=== PATIENT | male | born 1955 | race Caucasian/White ===

== ENCOUNTER 2021-07-28 11:36 | Inpatient (IN) ==
[2021-07-28 13:56] LABS: Basophils % 0.6 %; Eosinophils # 0.2 K/mcL (0.0-0.6); Eosinophils % 2.6 %; Hematocrit 43.9 % (37.5-50.1); Immature Granulocytes % 0.3 % (0-4); Lymphocytes # 1.5 K/mcL (0.6-4.6); Lymphocytes % 21.6 %; Mean Corpuscular HGB Conc 34.2 g/dL (31.6-35.5); Mean Corpuscular Hemoglobin 30.4 pg (28.0-33.3); Mean Platelet Volume 9.8 fL (9.4-12.4); Monocytes # 0.8 K/mcL (0.0-1.3); Monocytes % 10.9 %; Neutrophils # 4.5 K/mcL (1.6-8.9); Platelet Count 259 K/mcL (140-400); Red Blood Count 4.93 M/mcL (4.19-5.50); Red Cell Distribution Width 13.7 % (11.5-14.5)
[2021-07-28] MEDS ORDERED: Furosemide 40 MG/4 ML VIAL IVP ONE (13:58)
[2021-07-28] MEDS ORDERED: Nitroglycerin 0.4 MG TAB.SUBL SL STA (13:58)
[2021-07-28 14:17] LABS: BUN/Creatinine Ratio 31 (6-26); Blood Urea Nitrogen 27 mg/dL (8-23); Calcium 9.9 mg/dL (8.6-10.3); Carbon Dioxide 25 mEq/L (23-29); Chloride 96 mEq/L (98-107); Glucose 325 mg/dL (70-105); Osmolality,Calculated 294 (280-300); Potassium 4.3 mEq/L (3.5-5.1); Sodium 133 mEq/L (136-145); Troponin I 0.03 ng/mL (< 0.04); eGFR For African Americans > 60 (> 60); eGFR For Non-African Americans > 60 (> 60)
[2021-07-28] MEDS ORDERED: Naloxone 0.4 MG/ML INJ IVP PRN (15:59)
[2021-07-28] MEDS ORDERED: Acetaminophen 325 MG TABLET PO PRN (15:59)
[2021-07-28] MEDS ORDERED: Ondansetron 4 MG/2 ML VIAL IVP PRN (15:59)
[2021-07-28] MEDS ORDERED: Perflutren Lipid Microsphere 1.3 ML in 0.9 % Sodium Chloride 8.7 ML IVP PRN (16:01)
[2021-07-28] MEDS ORDERED: Dextrose 4 GM Chewable Tablets PO PRN ×2 (16:07)
[2021-07-28] MEDS ORDERED: D5% in Water 1,000 ML IVC PRN (16:07)
[2021-07-28] MEDS ORDERED: *HR* Dextrose 50 % in Water (Syg) 50 ML SYRINGE IVP PRN (16:07)
[2021-07-28] MEDS: Insulin LISPRO 300 UNITS/3 ML VIAL SUBQ SCH (17:51)
[2021-07-28] MEDS: *HR* Heparin 5,000 UNIT/ML VIAL SQ SCH (17:52)
[2021-07-29 00:57] LABS: Basophils # 0.1 K/mcL (0.0-0.2); Basophils % 0.9 %; Eosinophils # 0.3 K/mcL (0.0-0.6); Hematocrit 40.1 % (37.5-50.1); Immature Granulocytes % 0.3 % (0-4); Lymphocytes # 1.8 K/mcL (0.6-4.6); Lymphocytes % 27.5 %; Mean Corpuscular HGB Conc 33.4 g/dL (31.6-35.5); Mean Corpuscular Hemoglobin 29.7 pg (28.0-33.3); Mean Corpuscular Volume 88.9 fL (83.0-100.0); Mean Platelet Volume 9.6 fL (9.4-12.4); Monocytes # 0.9 K/mcL (0.0-1.3); Monocytes % 13.2 %; Neutrophils # 3.6 K/mcL (1.6-8.9); Platelet Count 234 K/mcL (140-400); Red Blood Count 4.51 M/mcL (4.19-5.50); Red Cell Distribution Width 13.5 % (11.5-14.5); Segmented Neutrophils % 54.1 %; White Blood Count 6.7 K/mcL (4.3-11.1)
[2021-07-29 00:59] LABS: Hemoglobin 13.4 g/dL (12.9-16.9)
[2021-07-29 01:13] LABS: Alanine Aminotransferase 12 Units/L (7-52); Albumin 3.7 g/dL (3.5-5.7); Albumin/Globulin Ratio 1.5 (1.1-2.2); Alkaline Phosphatase 75 Units/L (34-104); Aspartate Amino Transferase 11 Units/L (13-39); BUN/Creatinine Ratio 32 (6-26); Bilirubin,Total 0.5 mg/dL (0.3-1.0); Blood Urea Nitrogen 25 mg/dL (8-23); Calcium 9.3 mg/dL (8.6-10.3); Carbon Dioxide 26 mEq/L (23-29); Chloride 100 mEq/L (98-107); Chol/HDL Ratio 6.2 (0-4.9); Cholesterol 206 mg/dL (< 200); Globulin 2.4 g/dL (2.4-3.5); Glucose 272 mg/dL (70-105); HDL Cholesterol 33 mg/dL (40-59); LDL Cholesterol,Calculated 151 mg/dL (< 100); Magnesium 2.1 mg/dL (1.6-2.6); Osmolality,Calculated 296 (280-300); Phosphorous 3.9 mg/dL (2.7-4.5); Potassium 3.7 mEq/L (3.5-5.1); Sodium 136 mEq/L (136-145); Total Protein 6.1 g/dL (6.4-8.9); Triglycerides 110 mg/dL (< 150); eGFR For African Americans > 60 (> 60); eGFR For Non-African Americans > 60 (> 60)
[2021-07-29 01:14] LABS: Troponin I 0.03 ng/mL (< 0.04)
[2021-07-29 01:28] LABS: Thyroid Stimulating Hormone 3.216 mcIU/mL (0.340-5.600)
[2021-07-29] MEDS: *HR* Heparin 5,000 UNIT/ML VIAL SQ SCH ×2 (06:05→16:40)
[2021-07-29] MEDS: Aspirin 81 MG TAB.CHEW PO SCH (10:01)
[2021-07-29] MEDS: Insulin LISPRO 300 UNITS/3 ML VIAL SUBQ SCH ×3 (10:02→16:37)
[2021-07-29] MEDS: Furosemide 40 MG/4 ML VIAL IVP SCH (10:02)
[2021-07-29] MEDS: Spironolactone 12.5 MG TABLET PO SCH (16:40)
[2021-07-29] MEDS: carvediloL 6.25 MG TABLET PO SCH (16:40)
[2021-07-30] MEDS: *HR* Heparin 5,000 UNIT/ML VIAL SQ SCH ×2 (05:13→17:27)
[2021-07-30 08:23] LABS: Basophils % 0.6 %; Eosinophils # 0.3 K/mcL (0.0-0.6); Eosinophils % 3.7 %; Hematocrit 40.9 % (37.5-50.1); Hemoglobin 13.4 g/dL (12.9-16.9); Immature Granulocytes % 0.1 % (0-4); Lymphocytes # 1.3 K/mcL (0.6-4.6); Lymphocytes % 19.9 %; Mean Corpuscular HGB Conc 32.8 g/dL (31.6-35.5); Mean Corpuscular Hemoglobin 29.5 pg (28.0-33.3); Mean Corpuscular Volume 90.1 fL (83.0-100.0); Mean Platelet Volume 9.8 fL (9.4-12.4); Monocytes # 0.7 K/mcL (0.0-1.3); Neutrophils # 4.3 K/mcL (1.6-8.9); Platelet Count 240 K/mcL (140-400); Red Blood Count 4.54 M/mcL (4.19-5.50); Red Cell Distribution Width 13.4 % (11.5-14.5); Segmented Neutrophils % 64.7 %; White Blood Count 6.7 K/mcL (4.3-11.1)
[2021-07-30 08:35] LABS: Alanine Aminotransferase 11 Units/L (7-52); Albumin 3.8 g/dL (3.5-5.7); Albumin/Globulin Ratio 1.4 (1.1-2.2); Alkaline Phosphatase 78 Units/L (34-104); Aspartate Amino Transferase 9 Units/L (13-39); BUN/Creatinine Ratio 33 (6-26); Bilirubin,Total 0.7 mg/dL (0.3-1.0); Blood Urea Nitrogen 28 mg/dL (8-23); Calcium 9.1 mg/dL (8.6-10.3); Carbon Dioxide 25 mEq/L (23-29); Chloride 101 mEq/L (98-107); Globulin 2.7 g/dL (2.4-3.5); Glucose 324 mg/dL (70-105); Osmolality,Calculated 298 (280-300); Potassium 3.8 mEq/L (3.5-5.1); Sodium 135 mEq/L (136-145); Total Protein 6.5 g/dL (6.4-8.9); eGFR For African Americans > 60 (> 60); eGFR For Non-African Americans > 60 (> 60)
[2021-07-30] MEDS ORDERED: lisinopriL 5 MG TABLET PO SCH (09:00)
[2021-07-30] MEDS: Insulin LISPRO 300 UNITS/3 ML VIAL SUBQ SCH ×3 (09:26→17:27)
[2021-07-30] MEDS: Spironolactone 12.5 MG TABLET PO SCH (09:27)
[2021-07-30] MEDS: carvediloL 6.25 MG TABLET PO SCH ×2 (09:27→17:27)
[2021-07-30] MEDS: Aspirin 81 MG TAB.CHEW PO SCH (09:27)
[2021-07-30] MEDS: Furosemide 40 MG/4 ML VIAL IVP SCH ×2 (09:27→17:28)
[2021-07-30 10:47] LABS: Estimated Average Glucose 318 mg/dl; Hemoglobin A1C 12.7 %
[2021-07-31] MEDS: *HR* Heparin 5,000 UNIT/ML VIAL SQ SCH ×2 (05:26→17:24)
[2021-07-31] MEDS: carvediloL 6.25 MG TABLET PO SCH ×2 (08:20→17:27)
[2021-07-31] MEDS: Spironolactone 12.5 MG TABLET PO SCH (08:20)
[2021-07-31] MEDS: Insulin LISPRO 300 UNITS/3 ML VIAL SUBQ SCH ×6 (08:20→20:26)
[2021-07-31] MEDS: Aspirin 81 MG TAB.CHEW PO SCH (08:20)
[2021-07-31] MEDS: Furosemide 40 MG/4 ML VIAL IVP SCH ×2 (08:21→17:28)
[2021-07-31 10:29] LABS: Basophils # 0.1 K/mcL (0.0-0.2); Basophils % 0.8 %; Eosinophils # 0.2 K/mcL (0.0-0.6); Eosinophils % 3.1 %; Hematocrit 42.4 % (37.5-50.1); Hemoglobin 14.1 g/dL (12.9-16.9); Immature Granulocytes % 0.5 % (0-4); Lymphocytes # 1.1 K/mcL (0.6-4.6); Lymphocytes % 16.8 %; Mean Corpuscular HGB Conc 33.3 g/dL (31.6-35.5); Mean Corpuscular Hemoglobin 29.6 pg (28.0-33.3); Mean Corpuscular Volume 89.1 fL (83.0-100.0); Mean Platelet Volume 10.4 fL (9.4-12.4); Monocytes # 0.6 K/mcL (0.0-1.3); Monocytes % 9.1 %; Neutrophils # 4.4 K/mcL (1.6-8.9); Platelet Count 238 K/mcL (140-400); Red Blood Count 4.76 M/mcL (4.19-5.50); Red Cell Distribution Width 13.4 % (11.5-14.5); Segmented Neutrophils % 69.7 %; White Blood Count 6.4 K/mcL (4.3-11.1)
[2021-07-31 10:30] LABS: Hematocrit 41.8 % (37.5-50.1); Hemoglobin 13.9 g/dL (12.9-16.9); Mean Corpuscular HGB Conc 33.3 g/dL (31.6-35.5); Mean Corpuscular Hemoglobin 29.5 pg (28.0-33.3); Mean Corpuscular Volume 88.7 fL (83.0-100.0); Mean Platelet Volume 10.2 fL (9.4-12.4); Platelet Count 246 K/mcL (140-400); Red Blood Count 4.71 M/mcL (4.19-5.50); Red Cell Distribution Width 13.3 % (11.5-14.5); White Blood Count 6.3 K/mcL (4.3-11.1)
[2021-07-31 10:47] LABS: Alanine Aminotransferase 9 Units/L (7-52); Albumin 3.9 g/dL (3.5-5.7); Albumin/Globulin Ratio 1.5 (1.1-2.2); Alkaline Phosphatase 79 Units/L (34-104); Aspartate Amino Transferase 9 Units/L (13-39); BUN/Creatinine Ratio 28 (6-26); Bilirubin,Total 0.7 mg/dL (0.3-1.0); Blood Urea Nitrogen 29 mg/dL (8-23); Calcium 9.6 mg/dL (8.6-10.3); Carbon Dioxide 27 mEq/L (23-29); Chloride 98 mEq/L (98-107); Globulin 2.6 g/dL (2.4-3.5); Glucose 385 mg/dL (70-105); Osmolality,Calculated 306 (280-300); Potassium 3.8 mEq/L (3.5-5.1); Sodium 137 mEq/L (136-145); Total Protein 6.5 g/dL (6.4-8.9); eGFR For African Americans > 60 (> 60); eGFR For Non-African Americans > 60 (> 60)
[2021-08-01 01:50] LABS: Hematocrit 41.7 % (37.5-50.1); Mean Corpuscular HGB Conc 33.6 g/dL (31.6-35.5); Mean Corpuscular Hemoglobin 29.9 pg (28.0-33.3); Mean Corpuscular Volume 89.1 fL (83.0-100.0); Mean Platelet Volume 10.1 fL (9.4-12.4); Platelet Count 229 K/mcL (140-400); Red Blood Count 4.68 M/mcL (4.19-5.50); Red Cell Distribution Width 13.4 % (11.5-14.5); White Blood Count 6.8 K/mcL (4.3-11.1)
[2021-08-01 02:15] LABS: BUN/Creatinine Ratio 31 (6-26); Blood Urea Nitrogen 34 mg/dL (8-23); Calcium 9.5 mg/dL (8.6-10.3); Carbon Dioxide 25 mEq/L (23-29); Chloride 100 mEq/L (98-107); Glucose 261 mg/dL (70-105); Osmolality,Calculated 305 (280-300); Potassium 3.5 mEq/L (3.5-5.1); Sodium 139 mEq/L (136-145); eGFR For African Americans > 60 (> 60); eGFR For Non-African Americans > 60 (> 60)
[2021-08-01] MEDS: *HR* Heparin 5,000 UNIT/ML VIAL SQ SCH ×2 (05:10→17:12)
[2021-08-01] MEDS: Spironolactone 12.5 MG TABLET PO SCH (07:30)
[2021-08-01] MEDS: Insulin LISPRO 300 UNITS/3 ML VIAL SUBQ SCH ×4 (07:31→21:42)
[2021-08-01] MEDS: carvediloL 6.25 MG TABLET PO SCH ×2 (07:31→17:35)
[2021-08-01] MEDS: Furosemide 40 MG/4 ML VIAL IVP SCH ×2 (07:31→18:55)
[2021-08-01] MEDS: Aspirin 81 MG TAB.CHEW PO SCH (07:31)
[2021-08-01] MEDS ORDERED: ISOVUE-370 200 ML INFUS..BTL ONE (16:06)
[2021-08-01] MEDS ORDERED: *HR* Heparin 10,000 UNIT/10 ML VIAL ONE (16:06)
[2021-08-01] MEDS ORDERED: 0.9 % Sodium Chloride 2,000 ML ONE (16:06)
[2021-08-01] MEDS ORDERED: Heparin 1,000 UNITS/500 mL 500 ML ONE (16:06)
[2021-08-01] MEDS ORDERED: Nitroglycerin 1,000 MCG/5 ML VIAL IV ONE (16:06)
[2021-08-01] MEDS ORDERED: *HR* FentaNYL (PF) 100 MCG/2 ML VIAL ONE (16:30)
[2021-08-01] MEDS ORDERED: *HR* Midazolam HCl 2 MG/2 ML VIAL ONE (16:31)
[2021-08-02] MEDS: *HR* Heparin 5,000 UNIT/ML VIAL SQ SCH ×2 (04:42→19:44)
[2021-08-02 07:23] LABS: Hematocrit 40.4 % (37.5-50.1); Hemoglobin 13.4 g/dL (12.9-16.9); Mean Corpuscular HGB Conc 33.2 g/dL (31.6-35.5); Mean Corpuscular Hemoglobin 29.6 pg (28.0-33.3); Mean Corpuscular Volume 89.2 fL (83.0-100.0); Mean Platelet Volume 10.3 fL (9.4-12.4); Platelet Count 227 K/mcL (140-400); Red Blood Count 4.53 M/mcL (4.19-5.50); Red Cell Distribution Width 13.2 % (11.5-14.5); White Blood Count 6.8 K/mcL (4.3-11.1)
[2021-08-02 07:30] LABS: BUN/Creatinine Ratio 33 (6-26); Blood Urea Nitrogen 35 mg/dL (8-23); Calcium 9.5 mg/dL (8.6-10.3); Carbon Dioxide 24 mEq/L (23-29); Chloride 99 mEq/L (98-107); Glucose 279 mg/dL (70-105); Osmolality,Calculated 298 (280-300); Potassium 3.7 mEq/L (3.5-5.1); Sodium 135 mEq/L (136-145); eGFR For African Americans > 60 (> 60); eGFR For Non-African Americans > 60 (> 60)
[2021-08-02] MEDS: Spironolactone 12.5 MG TABLET PO SCH (08:49)
[2021-08-02] MEDS: carvediloL 6.25 MG TABLET PO SCH (08:49)
[2021-08-02] MEDS: Aspirin 81 MG TAB.CHEW PO SCH (08:50)
[2021-08-02] MEDS: Furosemide 40 MG/4 ML VIAL IVP SCH (08:51)
[2021-08-02] MEDS: Insulin LISPRO 300 UNITS/3 ML VIAL SUBQ SCH ×3 (08:53→19:49)
[2021-08-02] MEDS ORDERED: Insulin LISPRO 300 UNITS/3 ML VIAL SUBQ SCH ×2 (14:29→14:30)
[2021-08-02] MEDS ORDERED: *HR* FentaNYL (PF) 100 MCG/2 ML VIAL ONE (16:04)
[2021-08-02] MEDS ORDERED: 0.9 % Sodium Chloride 2,000 ML ONE (16:04)
[2021-08-02] MEDS ORDERED: *HR* Midazolam HCl 2 MG/2 ML VIAL ONE (16:04)
[2021-08-02] MEDS ORDERED: Heparin 1,000 UNITS/500 mL 1,000 ML ONE (16:05)
[2021-08-02] MEDS ORDERED: Nitroglycerin 1,000 MCG/5 ML VIAL IV ONE (16:05)
[2021-08-02] MEDS ORDERED: ISOVUE-370 200 ML INFUS..BTL ONE (16:05)
[2021-08-02] MEDS ORDERED: *HR* Heparin 10,000 UNIT/10 ML VIAL ONE (16:05)
[2021-08-02] MEDS ORDERED: *HR* Dextrose 50 % in Water (Syg) 50 ML SYRINGE IVP PRN (17:26)
[2021-08-02] MEDS ORDERED: D5% in Water 1,000 ML IVC PRN (17:26)
[2021-08-02] MEDS ORDERED: Ondansetron 4 MG/2 ML VIAL IVP PRN (17:26)
[2021-08-02] MEDS ORDERED: Dextrose 4 GM Chewable Tablets PO PRN ×2 (17:26)
[2021-08-02] MEDS ORDERED: Perflutren Lipid Microsphere 1.3 ML in 0.9 % Sodium Chloride 8.7 ML IVP PRN (17:26)
[2021-08-02] MEDS ORDERED: Naloxone 0.4 MG/ML INJ IVP PRN (17:26)
[2021-08-02] MEDS ORDERED: Acetaminophen 325 MG TABLET PO PRN (17:26)
[2021-08-02 17:54] LABS: Basophils # 0.1 K/mcL (0.0-0.2); Basophils % 0.7 %; Eosinophils # 0.3 K/mcL (0.0-0.6); Eosinophils % 4.1 %; Hematocrit 40.1 % (37.5-50.1); Hemoglobin 13.5 g/dL (12.9-16.9); Immature Granulocytes % 0.3 % (0-4); Lymphocytes # 1.7 K/mcL (0.6-4.6); Mean Corpuscular HGB Conc 33.7 g/dL (31.6-35.5); Mean Corpuscular Hemoglobin 29.9 pg (28.0-33.3); Mean Corpuscular Volume 88.7 fL (83.0-100.0); Mean Platelet Volume 10.4 fL (9.4-12.4); Monocytes # 0.8 K/mcL (0.0-1.3); Monocytes % 10.4 %; Neutrophils # 4.5 K/mcL (1.6-8.9); Platelet Count 216 K/mcL (140-400); Red Blood Count 4.52 M/mcL (4.19-5.50); Red Cell Distribution Width 13.2 % (11.5-14.5); Segmented Neutrophils % 61.5 %; White Blood Count 7.2 K/mcL (4.3-11.1)
[2021-08-02 17:58] LABS: INR 1.1; Prothrombin Time 12.8 Seconds (9.4-12.1)
[2021-08-02 18:11] LABS: BUN/Creatinine Ratio 36 (6-26); Blood Urea Nitrogen 33 mg/dL (8-23); Calcium 9.3 mg/dL (8.6-10.3); Carbon Dioxide 26 mEq/L (23-29); Chloride 102 mEq/L (98-107); Chol/HDL Ratio 5.4 (0-4.9); Cholesterol 156 mg/dL (< 200); Glucose 165 mg/dL (70-105); HDL Cholesterol 29 mg/dL (40-59); LDL Cholesterol,Calculated 114 mg/dL (< 100); Osmolality,Calculated 295 (280-300); Potassium 3.4 mEq/L (3.5-5.1); Sodium 137 mEq/L (136-145); Triglycerides 66 mg/dL (< 150); eGFR For African Americans > 60 (> 60); eGFR For Non-African Americans > 60 (> 60)
[2021-08-02 18:14] LABS: Activated Partial Thrombo Time 111.8 Seconds (26.0-36.0)
[2021-08-02] MEDS: Chlorhexidine Rinse 15 ML MOUTHWASH MM SCH (19:43)
[2021-08-03] MEDS: Melatonin 3 MG TABLET PO SCH (02:02)
[2021-08-03 05:32] LABS: Basophils # 0.1 K/mcL (0.0-0.2); Basophils % 0.7 %; Eosinophils # 0.2 K/mcL (0.0-0.6); Hematocrit 40.3 % (37.5-50.1); Hemoglobin 13.5 g/dL (12.9-16.9); Immature Granulocytes % 0.5 % (0-4); Lymphocytes # 1.5 K/mcL (0.6-4.6); Lymphocytes % 17.2 %; Mean Corpuscular HGB Conc 33.5 g/dL (31.6-35.5); Mean Corpuscular Volume 89.6 fL (83.0-100.0); Mean Platelet Volume 10.4 fL (9.4-12.4); Monocytes # 0.9 K/mcL (0.0-1.3); Monocytes % 9.9 %; Neutrophils # 6.2 K/mcL (1.6-8.9); Platelet Count 207 K/mcL (140-400); Red Cell Distribution Width 13.2 % (11.5-14.5); Segmented Neutrophils % 69.7 %; White Blood Count 8.9 K/mcL (4.3-11.1)
[2021-08-03 05:37] LABS: INR 1.1; Prothrombin Time 12.8 Seconds (9.4-12.1)
[2021-08-03] MEDS: *HR* Heparin 5,000 UNIT/ML VIAL SQ SCH ×2 (05:37→17:16)
[2021-08-03 05:40] LABS: Activated Partial Thrombo Time 32.5 Seconds (26.0-36.0)
[2021-08-03 05:46] LABS: BUN/Creatinine Ratio 32 (6-26); Blood Urea Nitrogen 31 mg/dL (8-23); Calcium 9.3 mg/dL (8.6-10.3); Carbon Dioxide 23 mEq/L (23-29); Chloride 103 mEq/L (98-107); Glucose 233 mg/dL (70-105); Magnesium 1.8 mg/dL (1.6-2.6); Osmolality,Calculated 296 (280-300); Phosphorous 3.6 mg/dL (2.7-4.5); Potassium 4.1 mEq/L (3.5-5.1); Sodium 136 mEq/L (136-145); eGFR For African Americans > 60 (> 60); eGFR For Non-African Americans > 60 (> 60)
[2021-08-03] MEDS ORDERED: Aspirin 81 MG TAB.CHEW PO ONE ×2 (06:00→15:00)
[2021-08-03] MEDS ORDERED: CeFAZolin Syr 2,000MG/20 ML 2,000 MG/20 ML SYRINGE IVPB ONE (06:00)
[2021-08-03] MEDS ORDERED: Papaverine 60 MG/2 ML VIAL IVP ONE ×2 (06:04→06:32)
[2021-08-03] MEDS ORDERED: DOBUTamine 1,000 MG/250 ML BAG ONE (06:08)
[2021-08-03] MEDS ORDERED: *HR* Vasopressin 20 UNIT/ML VIAL ONE (06:08)
[2021-08-03] MEDS ORDERED: NiCARdipine 2.5 MG/10 ML Syringe IVPB ONE (06:09)
[2021-08-03] MEDS ORDERED: *HR* Midazolam HCl 5 MG/5 ML VIAL IVP ONE ×3 (06:11→12:55)
[2021-08-03] MEDS ORDERED: *HR* FentaNYL (PF) 250 MCG/5 ML VIAL ONE ×2 (06:12→09:06)
[2021-08-03] MEDS ORDERED: *HR* Norepinephrine 4 MG/4 ML VIAL IVC ONE (06:13)
[2021-08-03] MEDS ORDERED: niCARdipine 20 MG/200 ML MLS IVC ONE (06:13)
[2021-08-03] MEDS ORDERED: *HR* Rocuronium Bromide 50 MG/5 ML VIAL ONE ×3 (06:13→12:42)
[2021-08-03] MEDS ORDERED: *HR* Etomidate 20 MG/10 ML AMPUL IVP ONE (06:16)
[2021-08-03] MEDS ORDERED: Calcium Gluconate 1,000 MG/10 ML VIAL ONE (06:17)
[2021-08-03] MEDS ORDERED: Protamine Sulfate 250 MG/25 ML VIAL IVP ONE (06:17)
[2021-08-03] MEDS ORDERED: Sodium Bicarbonate 10 MEQ, Potassium Chloride 80 MEQ in CARDIOPLEGIC SOLUTION NO.1 1,00... PF ONE (07:00)
[2021-08-03] MEDS ORDERED: del Nido Cardioplegia Solution PF ONE ×2 (07:00)
[2021-08-03] MEDS ORDERED: Mannitol 25% vial 3.25 GM, Magnesium Sulfate 2 GM, Sodium Bicarbonate 13 MEQ, Potassium... PF ONE ×2 (07:00)
[2021-08-03] MEDS ORDERED: Norepinephrine 4 MG in 0.9 % Sodium Chloride 250 ML IVC PRN (07:00)
[2021-08-03] MEDS ORDERED: Heparin 15,000 UNIT in 0.9 % Sodium Chloride 500 ML IV ONE ×4 (07:00)
[2021-08-03] MEDS ORDERED: Buckersberg's Blood Cardioplegia PF ONE (07:00)
[2021-08-03] MEDS ORDERED: Spironolactone 12.5 MG TABLET PO SCH (09:00)
[2021-08-03] MEDS ORDERED: Metoprolol XL (24 HR) Succ 25 MG TAB.ER.24H PO SCH (09:00)
[2021-08-03] MEDS ORDERED: Furosemide 40 MG/4 ML VIAL IVP SCH ×2 (09:00)
[2021-08-03 09:18] LABS: ABG Base Excess -4 mEq/L (-2 to 3); ABG Chloride 105 mEq/L (98-107); ABG Glucose 226 mg/dL (60-95); ABG HCO3 22 mEq/L (21-27); ABG Ionized Calcium 1.27 mmol/L (1.15-1.35); ABG Oxygen Saturation 100 % (95-98); ABG PCO2 40 mmHg (35-45); ABG PH 7.34 pH Units (7.32-7.45); ABG PO2 353 mmHg (85-104); ABG TCO2 23 mEq/L (20-26)
[2021-08-03 10:03] LABS: ABG Base Excess -2 mEq/L (-2 to 3); ABG Chloride 105 mEq/L (98-107); ABG Glucose 230 mg/dL (60-95); ABG HCO3 23 mEq/L (21-27); ABG Ionized Calcium 1.24 mmol/L (1.15-1.35); ABG Oxygen Saturation 100 % (95-98); ABG PCO2 40 mmHg (35-45); ABG PH 7.37 pH Units (7.32-7.45); ABG PO2 172 mmHg (85-104); ABG TCO2 24 mEq/L (20-26)
[2021-08-03] MEDS: Insulin LISPRO 300 UNITS/3 ML VIAL SUBQ SCH ×4 (10:21→19:12)
[2021-08-03] MEDS: Chlorhexidine Rinse 15 ML MOUTHWASH MM SCH ×2 (10:22→19:21)
[2021-08-03 10:23] LABS: ABG Base Excess 1 mEq/L (-2 to 3); ABG Chloride 100 mEq/L (98-107); ABG Glucose 190 mg/dL (60-95); ABG HCO3 26 mEq/L (21-27); ABG Ionized Calcium 1.03 mmol/L (1.15-1.35); ABG Oxygen Saturation 100 % (95-98); ABG PCO2 44 mmHg (35-45); ABG PH 7.38 pH Units (7.32-7.45); ABG PO2 622 mmHg (85-104); ABG TCO2 27 mEq/L (20-26)
[2021-08-03 10:56] LABS: ABG Base Excess 1 mEq/L (-2 to 3); ABG Chloride 102 mEq/L (98-107); ABG Glucose 179 mg/dL (60-95); ABG HCO3 26 mEq/L (21-27); ABG Ionized Calcium 1.03 mmol/L (1.15-1.35); ABG Oxygen Saturation 100 % (95-98); ABG PCO2 43 mmHg (35-45); ABG PH 7.39 pH Units (7.32-7.45); ABG PO2 626 mmHg (85-104); ABG TCO2 27 mEq/L (20-26)
[2021-08-03 11:25] LABS: ABG Base Excess -2 mEq/L (-2 to 3); ABG Chloride 102 mEq/L (98-107); ABG Glucose 170 mg/dL (60-95); ABG HCO3 23 mEq/L (21-27); ABG Ionized Calcium 0.93 mmol/L (1.15-1.35); ABG Oxygen Saturation 100 % (95-98); ABG PCO2 36 mmHg (35-45); ABG PH 7.41 pH Units (7.32-7.45); ABG PO2 613 mmHg (85-104); ABG TCO2 24 mEq/L (20-26)
[2021-08-03] MEDS ORDERED: EPINEPHrine 1 MG/ML VIAL ONE (11:26)
[2021-08-03] MEDS ORDERED: Insulin Regular, Human 100 UNIT/ML IV PRN (11:43)
[2021-08-03] MEDS ORDERED: *HR* Dextrose 50 % in Water (Syg) 50 ML SYRINGE IVP PRN (11:43)
[2021-08-03] MEDS ORDERED: Calcium Gluconate 1gm/50mL 1 GM/50 ML BAG IVPB PRN (12:11)
[2021-08-03 12:14] LABS: ABG Base Excess -2 mEq/L (-2 to 3); ABG Chloride 103 mEq/L (98-107); ABG Glucose 182 mg/dL (60-95); ABG HCO3 23 mEq/L (21-27); ABG Ionized Calcium 0.99 mmol/L (1.15-1.35); ABG Oxygen Saturation 100 % (95-98); ABG PCO2 39 mmHg (35-45); ABG PH 7.38 pH Units (7.32-7.45); ABG PO2 533 mmHg (85-104); ABG TCO2 24 mEq/L (20-26)
[2021-08-03] MEDS: DOBUTamine 1,000 MG/250 ML BAG IVC SCH (14:10)
[2021-08-03] MEDS: Albumin Human 5% 12.5 GM/250 ML IV.SOLN IVPB PRN ×4 (14:15→21:13)
[2021-08-03 14:18] LABS: ABG Base Excess -2 mEq/L (-2 to 3); ABG HCO3 24 mEq/L (21-27); ABG Oxygen Saturation 99 % (95-98); ABG PCO2 45 mmHg (35-45); ABG PH 7.34 pH Units (7.32-7.45); ABG PO2 155 mmHg (85-104); ABG TCO2 26 mEq/L (20-26); Blood Gas VT 500 cc
[2021-08-03 14:29] LABS: Basophils # 0.1 K/mcL (0.0-0.2); Basophils % 0.4 %; Eosinophils # 0.1 K/mcL (0.0-0.6); Eosinophils % 0.7 %; Hemoglobin 11.5 g/dL (12.9-16.9); Immature Granulocytes % 0.4 % (0-4); Lymphocytes # 1.4 K/mcL (0.6-4.6); Lymphocytes % 11.5 %; Mean Corpuscular HGB Conc 33.8 g/dL (31.6-35.5); Mean Corpuscular Hemoglobin 30.4 pg (28.0-33.3); Mean Corpuscular Volume 89.9 fL (83.0-100.0); Mean Platelet Volume 9.8 fL (9.4-12.4); Monocytes # 0.4 K/mcL (0.0-1.3); Monocytes % 3.6 %; Platelet Count 114 K/mcL (140-400); Red Blood Count 3.78 M/mcL (4.19-5.50); Red Cell Distribution Width 13.2 % (11.5-14.5); Segmented Neutrophils % 83.4 %
[2021-08-03 14:34] LABS: INR 1.3; Prothrombin Time 14.2 Seconds (9.4-12.1)
[2021-08-03 14:37] LABS: Activated Partial Thrombo Time 44.2 Seconds (26.0-36.0)
[2021-08-03] MEDS: Norepinephrine 4 MG/254 ML IV.SOLN IVC SCH ×2 (14:40→18:01)
[2021-08-03] MEDS: Nitroprusside 50 MG in D5% in Water 250 ML IVC SCH (14:41)
[2021-08-03] MEDS: Pantoprazole 40 MG VIAL IVP SCH (14:48)
[2021-08-03 14:51] LABS: BUN/Creatinine Ratio 31 (6-26); Blood Urea Nitrogen 27 mg/dL (8-23); Calcium 7.8 mg/dL (8.6-10.3); Carbon Dioxide 24 mEq/L (23-29); Chloride 109 mEq/L (98-107); Glucose 240 mg/dL (70-105); Magnesium 2.7 mg/dL (1.6-2.6); Osmolality,Calculated 301 (280-300); Sodium 139 mEq/L (136-145); eGFR For African Americans > 60 (> 60); eGFR For Non-African Americans > 60 (> 60)
[2021-08-03] MEDS: CeFAZolin 2 GM/120 ML BAG IVPB SCH (15:12)
[2021-08-03 16:38] LABS: ABG Base Excess -1 mEq/L (-2 to 3); ABG HCO3 23 mEq/L (21-27); ABG Oxygen Saturation 97 % (95-98); ABG PCO2 33 mmHg (35-45); ABG PH 7.45 pH Units (7.32-7.45); ABG PO2 88 mmHg (85-104); ABG TCO2 24 mEq/L (20-26); Blood Gas Modality CPAP/PS; Blood Gas Pressure Support 10 cm H2O
[2021-08-03] MEDS: *HR* FentaNYL (PF) 100 MCG/2 ML VIAL IVP PRN ×3 (17:22→21:30)
[2021-08-03] MEDS ORDERED: Albumin Human 25% 25 GM/100 ML IV.SOLN IVPB ONE (17:42)
[2021-08-03] MEDS ORDERED: Mannitol 25% vial 12.5 GM/50 ML VIAL IVPB ONE (17:42)
[2021-08-03] MEDS ORDERED: *HR* Phenylephrine 10 MG/ML VIAL IVC ONE (17:42)
[2021-08-03] MEDS ORDERED: D5% in Water 250 ML IV BAG IV ONE (17:42)
[2021-08-03] MEDS ORDERED: *HR* Magnesium Sulfate 2 GM/50 ML PIGGYBACK IVPB ONE (17:42)
[2021-08-03] MEDS ORDERED: Heparin 1,000 UNITS/500 mL IV.SOLN IR ONE (17:42)
[2021-08-03] MEDS ORDERED: Tranexamic Acid 1,000 MG/10 ML VIAL IR ONE (17:42)
[2021-08-03] MEDS ORDERED: Lidocaine 2% Syringe 100 MG/5 ML IVP ONE (17:42)
[2021-08-03] MEDS ORDERED: *HR* Heparin 10,000 UNIT/10 ML VIAL IR ONE (17:42)
[2021-08-03] MEDS: *HR* OxyCODONE/APAP 5/325 TABLET PO PRN (23:06)
[2021-08-04] MEDS: *HR* FentaNYL (PF) 100 MCG/2 ML VIAL IVP PRN ×6 (00:22→11:39)
[2021-08-04] MEDS: CeFAZolin 2 GM/120 ML BAG IVPB SCH ×3 (02:16→15:38)
[2021-08-04 03:52] LABS: Basophils % 0.2 %; Immature Granulocytes % 0.2 % (0-4); Red Cell Distribution Width 13.3 % (11.5-14.5)
[2021-08-04 03:54] LABS: Hematocrit 25.7 % (37.5-50.1); Hemoglobin 8.7 g/dL (12.9-16.9); Immature Platelets 5.1 % (1.1-6.1); Lymphocytes # 0.6 K/mcL (0.6-4.6); Mean Corpuscular HGB Conc 33.9 g/dL (31.6-35.5); Mean Corpuscular Hemoglobin 30.3 pg (28.0-33.3); Mean Corpuscular Volume 89.5 fL (83.0-100.0); Mean Platelet Volume 10.9 fL (9.4-12.4); Monocytes # 1.1 K/mcL (0.0-1.3); Monocytes % 11.6 %; Neutrophils # 7.5 K/mcL (1.6-8.9); Platelet Count 116 K/mcL (140-400); Red Blood Count 2.87 M/mcL (4.19-5.50); White Blood Count 9.2 K/mcL (4.3-11.1)
[2021-08-04 03:58] LABS: BUN/Creatinine Ratio 27 (6-26); Blood Urea Nitrogen 24 mg/dL (8-23); Calcium 8.2 mg/dL (8.6-10.3); Carbon Dioxide 25 mEq/L (23-29); Chloride 108 mEq/L (98-107); Glucose 181 mg/dL (70-105); Magnesium 2.1 mg/dL (1.6-2.6); Osmolality,Calculated 301 (280-300); Potassium 3.5 mEq/L (3.5-5.1); Sodium 141 mEq/L (136-145); eGFR For African Americans > 60 (> 60); eGFR For Non-African Americans > 60 (> 60)
[2021-08-04 03:59] LABS: INR 1.4; Prothrombin Time 15.3 Seconds (9.4-12.1)
[2021-08-04 04:01] LABS: Activated Partial Thrombo Time 30.7 Seconds (26.0-36.0)
[2021-08-04] MEDS: Melatonin 3 MG TABLET PO SCH ×2 (04:43→20:37)
[2021-08-04] MEDS: *HR* Enoxaparin 40 MG/0.4 ML SYRINGE SQ SCH (05:59)
[2021-08-04] MEDS: Chlorhexidine Rinse 15 ML MOUTHWASH MM SCH ×2 (07:14→19:40)
[2021-08-04] MEDS: *HR* OxyCODONE/APAP 5/325 TABLET PO PRN ×3 (07:14→22:19)
[2021-08-04] MEDS: Pantoprazole 40 MG VIAL IVP SCH (07:15)
[2021-08-04] MEDS: Aspirin 81 MG TAB.CHEW PO SCH (07:41)
[2021-08-04] MEDS ORDERED: Bumetanide 1 MG/4 ML VIAL IVP SCH (08:15)
[2021-08-04] MEDS: Albumin Human 5% 12.5 GM/250 ML IV.SOLN IVPB PRN ×6 (08:35→15:37)
[2021-08-04] MEDS ORDERED: *HR* Phytonadione 10 MG/ML AMPUL SQ SCH (09:00)
[2021-08-04 10:55] LABS: ABG Base Excess -2 mEq/L (-2 to 3); ABG Chloride 105 mEq/L (98-107); ABG Glucose 235 mg/dL (60-95); ABG HCO3 22 mEq/L (21-27); ABG Ionized Calcium 1.27 mmol/L (1.15-1.35); ABG Oxygen Saturation 99 % (95-98); ABG PCO2 35 mmHg (35-45); ABG PO2 124 mmHg (85-104); ABG TCO2 23 mEq/L (20-26)
[2021-08-04] MEDS: Nitroprusside 50 MG in D5% in Water 250 ML IVC SCH (11:40)
[2021-08-04] MEDS: DOBUTamine 1,000 MG/250 ML BAG IVC SCH (11:40)
[2021-08-04] MEDS ORDERED: Perflutren Lipid Microsphere 1.3 ML in 0.9 % Sodium Chloride 8.7 ML IVP PRN (11:43)
[2021-08-04] MEDS ORDERED: *HR* Dextrose 50 % in Water (Syg) 50 ML SYRINGE IVP PRN (14:20)
[2021-08-04] MEDS ORDERED: Dextrose 4 GM Chewable Tablets PO PRN ×2 (14:20)
[2021-08-04] MEDS ORDERED: D5% in Water 1,000 ML IVC PRN (14:20)
[2021-08-04] MEDS ORDERED: Bumetanide 1 MG/4 ML VIAL IVP STA (16:10)
[2021-08-04] MEDS: Insulin LISPRO 300 UNITS/3 ML VIAL SUBQ SCH (16:35)
[2021-08-04] MEDS ORDERED: Insulin LISPRO 300 UNITS/3 ML VIAL SUBQ SCH (21:00)
[2021-08-05] MEDS: CeFAZolin 2 GM/120 ML BAG IVPB SCH ×2 (00:21→09:33)
[2021-08-05] MEDS: *HR* OxyCODONE/APAP 5/325 TABLET PO PRN ×2 (03:12→21:05)
[2021-08-05 04:02] LABS: Basophils % 0.2 %; Eosinophils % 0.1 %; Hematocrit 22.1 % (37.5-50.1); Hemoglobin 7.3 g/dL (12.9-16.9); Immature Granulocytes % 0.6 % (0-4); Immature Platelets 8.9 % (1.1-6.1); Lymphocytes # 0.9 K/mcL (0.6-4.6); Lymphocytes % 7.7 %; Mean Corpuscular Volume 90.9 fL (83.0-100.0); Mean Platelet Volume 11.7 fL (9.4-12.4); Monocytes # 1.2 K/mcL (0.0-1.3); Monocytes % 10.8 %; Neutrophils # 9.1 K/mcL (1.6-8.9); Platelet Count 111 K/mcL (140-400); Red Blood Count 2.43 M/mcL (4.19-5.50); Red Cell Distribution Width 13.6 % (11.5-14.5); Segmented Neutrophils % 80.6 %; White Blood Count 11.2 K/mcL (4.3-11.1)
[2021-08-05 04:14] LABS: Calcium 8.3 mg/dL (8.6-10.3); Magnesium 2.2 mg/dL (1.6-2.6); Potassium 3.7 mEq/L (3.5-5.1)
[2021-08-05] MEDS: DOBUTamine 1,000 MG/250 ML BAG IVC SCH (05:58)
[2021-08-05] MEDS: *HR* Enoxaparin 40 MG/0.4 ML SYRINGE SQ SCH (05:58)
[2021-08-05] MEDS ORDERED: Furosemide 40 MG/4 ML VIAL IVP ONE (07:47)
[2021-08-05] MEDS ORDERED: 0.9 % Sodium Chloride 250 ML ONE ×2 (08:38→10:04)
[2021-08-05] MEDS ORDERED: Insulin LISPRO 300 UNITS/3 ML VIAL SUBQ ONE (09:28)
[2021-08-05] MEDS: Aspirin 81 MG TAB.CHEW PO SCH (09:34)
[2021-08-05] MEDS: Chlorhexidine Rinse 15 ML MOUTHWASH MM SCH ×2 (09:34→20:15)
[2021-08-05] MEDS: Pantoprazole 40 MG VIAL IVP SCH (09:35)
[2021-08-05] MEDS: Insulin LISPRO 300 UNITS/3 ML VIAL SUBQ SCH (10:01)
[2021-08-05] MEDS ORDERED: Insulin DETEMIR 100 UNIT/ML X5UNITS SUBQ SCH (10:15)
[2021-08-05] MEDS ORDERED: 0.9 % Sodium Chloride 1,000 ML ONE (10:19)
[2021-08-05] MEDS: Norepinephrine 4 MG/254 ML IV.SOLN IVC SCH ×2 (10:38→13:58)
[2021-08-05] MEDS: Furosemide 240 MG in 0.9 % Sodium Chloride 96 ML IVC SCH (10:38)
[2021-08-05] MEDS ORDERED: *HR* Dextrose 50 % in Water (Syg) 50 ML SYRINGE IVP PRN (10:56)
[2021-08-05] MEDS ORDERED: 0.9 % Sodium Chloride 500 ML ONE (11:03)
[2021-08-05] MEDS ORDERED: Chlorothiazide Sodium 500 MG VIAL IVP ONE (11:57)
[2021-08-05 12:16] LABS: ABG Base Excess -2 mEq/L (-2 to 3); ABG HCO3 22 mEq/L (21-27); ABG Oxygen Saturation 97 % (95-98); ABG PCO2 34 mmHg (35-45); ABG PH 7.42 pH Units (7.32-7.45); ABG PO2 85 mmHg (85-104); ABG TCO2 23 mEq/L (20-26)
[2021-08-05 12:17] LABS: VBG HCO3 23 mEq/L (21-27); VBG PCO2 39 mmHg (41-51); VBG PH 7.38 pH Units (7.32-7.42); VBG PO2 157 mmHg (25-50)
[2021-08-05] MEDS: Morphine Sulfate 2 MG/ML SYRINGE IVP PRN ×2 (13:50→19:50)
[2021-08-05] MEDS: Albumin 25% 25gram/100mL 25 GM/100 ML IV.SOLN IVPB SCH ×2 (15:24→23:37)
[2021-08-05 15:48] LABS: Hematocrit 26.4 % (37.5-50.1); Mean Corpuscular HGB Conc 33.7 g/dL (31.6-35.5); Mean Corpuscular Volume 88.9 fL (83.0-100.0); Mean Platelet Volume 11.4 fL (9.4-12.4); Platelet Count 108 K/mcL (140-400); Red Blood Count 2.97 M/mcL (4.19-5.50); Red Cell Distribution Width 13.6 % (11.5-14.5); White Blood Count 12.1 K/mcL (4.3-11.1)
[2021-08-05 16:00] LABS: Calcium 8.6 mg/dL (8.6-10.3); Magnesium 2.6 mg/dL (1.6-2.6); Potassium 3.1 mEq/L (3.5-5.1)
[2021-08-05 16:07] LABS: Hemoglobin 8.9 g/dL (12.9-16.9)
[2021-08-05 16:13] LABS: Amorphous Sediment,Urine Few per hpf (None-Few); Bilirubin,Urine Negative (Negative); Blood,Urine Small (Negative); Clarity,Urine Clear (Clear); Color,Urine Colorless (Yellow); Glucose,Urine (UA) Normal (Normal); Ketones,Urine Negative (Negative); Leukocyte Esterase,Urine Negative (Negative); Mucus,Urine Few per lpf (None-Few); Nitrite,Urine Negative (Negative); Protein,Urine Trace mg/dL (Neg-Trace); RBC,Urine 0-3 per hpf (0-3); Specific Gravity,Urine 1.009 (1.010-1.025); Urobilinogen,Urine Normal (Normal); WBC,Urine 0-3 per hpf (0-3)
[2021-08-05 18:16] LABS: Creatinine,Urine 16 mg/dL; Microalbum/Creatinine Ratio,Ur 144 mcg/mg (Less than 30); Microalbumin,Urine 23 mg/L; Protein/Creatinine Ratio,Urine 1.19 mg/mg (0.00-0.20); Sodium, Urine < 10.0 mEq/L
[2021-08-05] MEDS: Melatonin 3 MG TABLET PO SCH (20:00)
[2021-08-05] MEDS: Potassium Chloride 40 MEQ/200 ML BAG IVPB PRN (20:01)
[2021-08-06] MEDS: Morphine Sulfate 2 MG/ML SYRINGE IVP PRN ×2 (02:21→05:28)
[2021-08-06 02:30] LABS: Magnesium 2.2 mg/dL (1.6-2.6); Potassium 3.1 mEq/L (3.5-5.1)
[2021-08-06] MEDS: Potassium Chloride 40 MEQ/200 ML BAG IVPB PRN (02:49)
[2021-08-06 04:03] LABS: Basophils % 0.3 %; Eosinophils # 0.2 K/mcL (0.0-0.6); Eosinophils % 1.6 %; Hematocrit 25.7 % (37.5-50.1); Hemoglobin 8.8 g/dL (12.9-16.9); Immature Granulocytes % 0.7 % (0-4); Lymphocytes % 8.9 %; Mean Corpuscular HGB Conc 34.2 g/dL (31.6-35.5); Mean Corpuscular Hemoglobin 30.6 pg (28.0-33.3); Mean Corpuscular Volume 89.2 fL (83.0-100.0); Mean Platelet Volume 11.5 fL (9.4-12.4); Monocytes # 1.1 K/mcL (0.0-1.3); Neutrophils # 8.6 K/mcL (1.6-8.9); Platelet Count 106 K/mcL (140-400); Red Blood Count 2.88 M/mcL (4.19-5.50); Red Cell Distribution Width 13.9 % (11.5-14.5); Segmented Neutrophils % 78.5 %
[2021-08-06 04:22] LABS: Uric Acid 7.9 mg/dL (2.3-7.6)
[2021-08-06 04:23] LABS: Calcium 8.7 mg/dL (8.6-10.3); Magnesium 2.9 mg/dL (1.6-2.6); Potassium 3.6 mEq/L (3.5-5.1)
[2021-08-06] MEDS: *HR* OxyCODONE/APAP 5/325 TABLET PO PRN ×2 (05:04→20:56)
[2021-08-06] MEDS: *HR* Enoxaparin 40 MG/0.4 ML SYRINGE SQ SCH (05:06)
[2021-08-06] MEDS: Norepinephrine 4 MG/254 ML IV.SOLN IVC SCH (06:05)
[2021-08-06] MEDS: Furosemide 240 MG in 0.9 % Sodium Chloride 96 ML IVC SCH (08:08)
[2021-08-06] MEDS ORDERED: Chlorothiazide Sodium 500 MG VIAL IVP ONE (08:30)
[2021-08-06] MEDS: Pantoprazole 40 MG VIAL IVP SCH (09:03)
[2021-08-06] MEDS: Chlorhexidine Rinse 15 ML MOUTHWASH MM SCH ×2 (09:05→20:55)
[2021-08-06] MEDS: Albumin 25% 25gram/100mL 25 GM/100 ML IV.SOLN IVPB SCH ×2 (09:05→16:45)
[2021-08-06 09:53] LABS: Magnesium 2.7 mg/dL (1.6-2.6); Potassium 3.5 mEq/L (3.5-5.1)
[2021-08-06] MEDS: Aspirin 81 MG TAB.CHEW PO SCH (10:00)
[2021-08-06] MEDS: DOBUTamine 1,000 MG/250 ML BAG IVC SCH (13:00)
[2021-08-06] MEDS ORDERED: 0.9 % Sodium Chloride 250 ML IV ONE (13:21)
[2021-08-06] MEDS: Insulin LISPRO 300 UNITS/3 ML VIAL SUBQ SCH ×2 (17:00→21:00)
[2021-08-06] MEDS: Melatonin 3 MG TABLET PO SCH (20:57)
[2021-08-07] MEDS: Albumin 25% 25gram/100mL 25 GM/100 ML IV.SOLN IVPB SCH ×2 (00:14→07:36)
[2021-08-07 04:45] LABS: Basophils % 0.2 %; Red Cell Distribution Width 13.8 % (11.5-14.5)
[2021-08-07 04:46] LABS: Eosinophils # 0.4 K/mcL (0.0-0.6); Eosinophils % 5.2 %; Hematocrit 24.2 % (37.5-50.1); Hemoglobin 7.9 g/dL (12.9-16.9); Immature Granulocytes % 0.5 % (0-4); Immature Platelets 9.4 % (1.1-6.1); Lymphocytes # 1.1 K/mcL (0.6-4.6); Mean Corpuscular HGB Conc 32.6 g/dL (31.6-35.5); Mean Platelet Volume 11.3 fL (9.4-12.4); Monocytes # 0.8 K/mcL (0.0-1.3); Neutrophils # 5.8 K/mcL (1.6-8.9); Platelet Count 108 K/mcL (140-400); Red Blood Count 2.63 M/mcL (4.19-5.50); Segmented Neutrophils % 71.1 %; White Blood Count 8.2 K/mcL (4.3-11.1)
[2021-08-07 05:13] LABS: Calcium 8.6 mg/dL (8.6-10.3); Magnesium 2.6 mg/dL (1.6-2.6); Potassium 3.5 mEq/L (3.5-5.1)
[2021-08-07] MEDS: *HR* Enoxaparin 40 MG/0.4 ML SYRINGE SQ SCH (05:16)
[2021-08-07] MEDS: Aspirin 81 MG TAB.CHEW PO SCH (07:35)
[2021-08-07] MEDS: Pantoprazole 40 MG VIAL IVP SCH (07:35)
[2021-08-07] MEDS: Chlorhexidine Rinse 15 ML MOUTHWASH MM SCH ×2 (07:36→20:04)
[2021-08-07] MEDS: Insulin LISPRO 300 UNITS/3 ML VIAL SUBQ SCH ×4 (08:03→20:05)
[2021-08-07] MEDS: *HR* OxyCODONE/APAP 5/325 TABLET PO PRN (08:09)
[2021-08-07] MEDS: DOBUTamine 1,000 MG/250 ML BAG IVC SCH (14:13)
[2021-08-07] MEDS: Melatonin 3 MG TABLET PO SCH (20:07)
[2021-08-07] MEDS: Nystatin SUSP 5 ML UD.LIQ PO SCH (21:25)
[2021-08-08] MEDS: *HR* OxyCODONE/APAP 5/325 TABLET PO PRN ×3 (03:26→20:27)
[2021-08-08 04:09] LABS: Basophils % 0.4 %; Eosinophils # 0.4 K/mcL (0.0-0.6); Eosinophils % 4.4 %; Hematocrit 25.6 % (37.5-50.1); Hemoglobin 8.4 g/dL (12.9-16.9); Immature Granulocytes % 0.5 % (0-4); Lymphocytes % 11.8 %; Mean Corpuscular HGB Conc 32.8 g/dL (31.6-35.5); Mean Corpuscular Hemoglobin 30.3 pg (28.0-33.3); Mean Corpuscular Volume 92.4 fL (83.0-100.0); Mean Platelet Volume 11.7 fL (9.4-12.4); Monocytes # 0.8 K/mcL (0.0-1.3); Monocytes % 9.6 %; Neutrophils # 6.2 K/mcL (1.6-8.9); Platelet Count 139 K/mcL (140-400); Red Blood Count 2.77 M/mcL (4.19-5.50); Red Cell Distribution Width 13.3 % (11.5-14.5); Segmented Neutrophils % 73.3 %; White Blood Count 8.5 K/mcL (4.3-11.1)
[2021-08-08 04:28] LABS: Calcium 8.6 mg/dL (8.6-10.3); Magnesium 2.7 mg/dL (1.6-2.6); Potassium 4.1 mEq/L (3.5-5.1)
[2021-08-08] MEDS: *HR* Enoxaparin 30 MG/0.3 ML SYRINGE SQ SCH (05:47)
[2021-08-08] MEDS: Insulin LISPRO 300 UNITS/3 ML VIAL SUBQ SCH ×4 (08:20→20:34)
[2021-08-08] MEDS: Nystatin SUSP 5 ML UD.LIQ PO SCH ×4 (08:21→20:03)
[2021-08-08] MEDS: Pantoprazole 40 MG VIAL IVP SCH (08:21)
[2021-08-08] MEDS: Chlorhexidine Rinse 15 ML MOUTHWASH MM SCH ×2 (08:21→20:03)
[2021-08-08] MEDS: Aspirin 81 MG TAB.CHEW PO SCH (08:22)
[2021-08-08] MEDS: Albumin Human 5% 12.5 GM/250 ML IV.SOLN IVC SCH ×2 (09:48→12:23)
[2021-08-08] MEDS: DOBUTamine 1,000 MG/250 ML BAG IVC SCH (12:26)
[2021-08-08] MEDS: Insulin DETEMIR 100 UNIT/ML X5UNITS SUBQ SCH ×2 (13:58→20:35)
[2021-08-08] MEDS: Melatonin 3 MG TABLET PO SCH (20:05)
[2021-08-09 04:02] LABS: Hematocrit 24.6 % (37.5-50.1); Hemoglobin 8.1 g/dL (12.9-16.9); Mean Corpuscular HGB Conc 32.9 g/dL (31.6-35.5); Mean Corpuscular Hemoglobin 29.8 pg (28.0-33.3); Mean Corpuscular Volume 90.4 fL (83.0-100.0); Mean Platelet Volume 11.4 fL (9.4-12.4); Platelet Count 164 K/mcL (140-400); Red Blood Count 2.72 M/mcL (4.19-5.50); Red Cell Distribution Width 13.3 % (11.5-14.5); White Blood Count 8.6 K/mcL (4.3-11.1)
[2021-08-09 04:20] LABS: Calcium 8.3 mg/dL (8.6-10.3); Magnesium 2.6 mg/dL (1.6-2.6); Potassium 3.8 mEq/L (3.5-5.1)
[2021-08-09 05:50] LABS: Protein/Creatinine Ratio,Urine 0.71 mg/mg (0.00-0.20)
[2021-08-09] MEDS: *HR* Enoxaparin 30 MG/0.3 ML SYRINGE SQ SCH (05:52)
[2021-08-09] MEDS: Chlorhexidine Rinse 15 ML MOUTHWASH MM SCH ×2 (07:33→19:50)
[2021-08-09] MEDS: Nystatin SUSP 5 ML UD.LIQ PO SCH ×4 (07:33→19:42)
[2021-08-09] MEDS: Aspirin 81 MG TAB.CHEW PO SCH (07:33)
[2021-08-09] MEDS: Insulin DETEMIR 100 UNIT/ML X5UNITS SUBQ SCH ×2 (07:34→19:42)
[2021-08-09] MEDS: Insulin LISPRO 300 UNITS/3 ML VIAL SUBQ SCH ×4 (07:38→19:33)
[2021-08-09] MEDS: Pantoprazole 40 MG VIAL IVP SCH (07:42)
[2021-08-09] MEDS ORDERED: 0.9 % Sodium Chloride 1,000 ML IVC SCH ×2 (09:00→10:27)
[2021-08-09 09:43] LABS: Sodium, Urine 13.2 mEq/L
[2021-08-09] MEDS: Albumin Human 5% 12.5 GM/250 ML IV.SOLN IVC SCH ×2 (09:47→10:05)
[2021-08-09 09:49] LABS: Amorphous Sediment,Urine Few per hpf (None-Few); Bacteria,Urine Few per hpf (None-Few); Bilirubin,Urine Negative (Negative); Blood,Urine Trace (Negative); Clarity,Urine Turbid (Clear); Color,Urine Yellow (Yellow); Glucose,Urine (UA) Normal (Normal); Granular Casts,Urine Few per lpf (None Seen); Hyaline Casts,Urine Many per lpf (None Seen); Ketones,Urine 10 mg/dL (Negative); Leukocyte Esterase,Urine Negative (Negative); Mucus,Urine Few per lpf (None-Few); Nitrite,Urine Negative (Negative); PH,Urine 5.5 pH Units (5.0-8.0); Protein,Urine 100 mg/dL (Neg-Trace); Renal Epithelial Cells,Urine Few per hpf (None-Few); Specific Gravity,Urine 1.018 (1.010-1.025); Squamous Epithelial Cell,Urine Few per hpf (None-Few); Transitional Epi Cells,Urine Few per hpf (None-Few); Urobilinogen,Urine Normal (Normal)
[2021-08-09] MEDS: DOBUTamine 1,000 MG/250 ML BAG IVC SCH ×3 (09:50→11:37)
[2021-08-09] MEDS ORDERED: *HR* Dextrose 50 % in Water (Syg) 50 ML SYRINGE IVP PRN (10:27)
[2021-08-09] MEDS ORDERED: D5% in Water 1,000 ML IVC PRN (10:27)
[2021-08-09] MEDS ORDERED: Acetaminophen 325 MG TABLET PO PRN (10:27)
[2021-08-09] MEDS ORDERED: Dextrose 4 GM Chewable Tablets PO PRN ×2 (10:27)
[2021-08-09] MEDS ORDERED: Naloxone 0.4 MG/ML INJ IVP PRN (10:27)
[2021-08-09] MEDS ORDERED: Morphine Sulfate 2 MG/ML SYRINGE IVP PRN (10:27)
[2021-08-09] MEDS ORDERED: Ondansetron 4 MG/2 ML VIAL IVP PRN (10:27)
[2021-08-09] MEDS ORDERED: Amiodarone Premix 150 MG/100 ML BAG IVPB ONE ×2 (12:51→12:53)
[2021-08-09] MEDS ORDERED: Amiodarone Premix 360 MG/200 ML BAG IVC ONE ×2 (12:53→13:10)
[2021-08-09] MEDS: DilTIAZem 50 MG/50 ML IV.SOLN IVC SCH (13:31)
[2021-08-09] MEDS: Amiodarone Premix 360 MG/200 ML BAG IVC SCH (19:10)
[2021-08-09] MEDS: Melatonin 3 MG TABLET PO SCH (19:41)
[2021-08-10] MEDS: *HR* OxyCODONE/APAP 5/325 TABLET PO PRN (00:30)
[2021-08-10 04:03] LABS: Hemoglobin 8.5 g/dL (12.9-16.9); Mean Corpuscular HGB Conc 32.7 g/dL (31.6-35.5); Mean Corpuscular Hemoglobin 29.3 pg (28.0-33.3); Mean Corpuscular Volume 89.7 fL (83.0-100.0); Platelet Count 236 K/mcL (140-400); Red Cell Distribution Width 13.1 % (11.5-14.5); White Blood Count 10.5 K/mcL (4.3-11.1)
[2021-08-10 04:23] LABS: Calcium 8.3 mg/dL (8.6-10.3); Magnesium 2.5 mg/dL (1.6-2.6); Potassium 3.6 mEq/L (3.5-5.1)
[2021-08-10] MEDS ORDERED: *HR* Enoxaparin 30 MG/0.3 ML SYRINGE SQ SCH (06:00)
[2021-08-10] MEDS: Amiodarone Premix 360 MG/200 ML BAG IVC SCH ×2 (07:47→19:13)
[2021-08-10] MEDS: Nystatin SUSP 5 ML UD.LIQ PO SCH ×4 (07:48→19:33)
[2021-08-10] MEDS: Chlorhexidine Rinse 15 ML MOUTHWASH MM SCH ×2 (07:48→19:33)
[2021-08-10] MEDS: Aspirin 81 MG TAB.CHEW PO SCH (07:49)
[2021-08-10] MEDS: Pantoprazole 40 MG VIAL IVP SCH (07:49)
[2021-08-10] MEDS: Insulin LISPRO 300 UNITS/3 ML VIAL SUBQ SCH ×4 (07:56→19:33)
[2021-08-10] MEDS: Insulin DETEMIR 100 UNIT/ML X5UNITS SUBQ SCH ×2 (07:56→19:35)
[2021-08-10] MEDS: DOBUTamine 1,000 MG/250 ML BAG IVC SCH (10:21)
[2021-08-10] MEDS: DilTIAZem 50 MG/50 ML IV.SOLN IVC SCH (11:42)
[2021-08-10] MEDS: Melatonin 3 MG TABLET PO SCH (19:33)
[2021-08-10] MEDS: *HR* Heparin 5,000 UNIT/ML VIAL SQ SCH (21:24)
[2021-08-11] MEDS: *HR* OxyCODONE/APAP 5/325 TABLET PO PRN ×2 (01:40→21:49)
[2021-08-11] MEDS: *HR* Heparin 5,000 UNIT/ML VIAL SQ SCH ×3 (05:39→21:49)
[2021-08-11 06:50] LABS: Basophils % 0.4 %; Eosinophils # 0.4 K/mcL (0.0-0.6); Eosinophils % 3.3 %; Hematocrit 26.7 % (37.5-50.1); Hemoglobin 8.8 g/dL (12.9-16.9); Immature Granulocytes % 0.7 % (0-4); Lymphocytes # 0.9 K/mcL (0.6-4.6); Lymphocytes % 8.2 %; Mean Corpuscular Hemoglobin 29.6 pg (28.0-33.3); Mean Corpuscular Volume 89.9 fL (83.0-100.0); Mean Platelet Volume 11.2 fL (9.4-12.4); Monocytes # 1.2 K/mcL (0.0-1.3); Monocytes % 11.7 %; Neutrophils # 7.9 K/mcL (1.6-8.9); Platelet Count 301 K/mcL (140-400); Red Blood Count 2.97 M/mcL (4.19-5.50); Red Cell Distribution Width 13.2 % (11.5-14.5); Segmented Neutrophils % 75.7 %; White Blood Count 10.5 K/mcL (4.3-11.1)
[2021-08-11 06:56] LABS: Calcium 8.3 mg/dL (8.6-10.3); Potassium 4.1 mEq/L (3.5-5.1)
[2021-08-11] MEDS: Amiodarone Premix 360 MG/200 ML BAG IVC SCH (07:35)
[2021-08-11] MEDS: *HR* Amiodarone 200 MG TABLET PO SCH ×3 (08:05→21:48)
[2021-08-11] MEDS: Chlorhexidine Rinse 15 ML MOUTHWASH MM SCH ×2 (08:17→21:47)
[2021-08-11] MEDS: Nystatin SUSP 5 ML UD.LIQ PO SCH ×4 (08:17→21:47)
[2021-08-11] MEDS: Aspirin 81 MG TAB.CHEW PO SCH (08:17)
[2021-08-11] MEDS: Pantoprazole 40 MG VIAL IVP SCH (08:19)
[2021-08-11] MEDS: Insulin LISPRO 300 UNITS/3 ML VIAL SUBQ SCH ×4 (08:23→21:43)
[2021-08-11] MEDS: Insulin DETEMIR 100 UNIT/ML X5UNITS SUBQ SCH ×2 (08:24→21:49)
[2021-08-11] MEDS ORDERED: Lidocaine/EPI 1:100k 1% 20 ML VIAL INFILT ONE (08:35)
[2021-08-11] MEDS: DOBUTamine 1,000 MG/250 ML BAG IVC SCH (12:57)
[2021-08-11] MEDS: DilTIAZem 50 MG/50 ML IV.SOLN IVC SCH (13:04)
[2021-08-11] MEDS: Melatonin 3 MG TABLET PO SCH (21:47)
[2021-08-12 04:11] LABS: Hematocrit 25.6 % (37.5-50.1); Hemoglobin 8.4 g/dL (12.9-16.9); Mean Corpuscular HGB Conc 32.8 g/dL (31.6-35.5); Mean Corpuscular Hemoglobin 29.1 pg (28.0-33.3); Mean Corpuscular Volume 88.6 fL (83.0-100.0); Mean Platelet Volume 10.8 fL (9.4-12.4); Platelet Count 316 K/mcL (140-400); Red Blood Count 2.89 M/mcL (4.19-5.50); Red Cell Distribution Width 13.2 % (11.5-14.5); White Blood Count 10.8 K/mcL (4.3-11.1)
[2021-08-12 04:31] LABS: Calcium 7.6 mg/dL (8.6-10.3); Magnesium 2.1 mg/dL (1.6-2.6); Potassium 3.4 mEq/L (3.5-5.1)
[2021-08-12] MEDS: *HR* Heparin 5,000 UNIT/ML VIAL SQ SCH ×3 (06:22→21:13)
[2021-08-12] MEDS: *HR* Amiodarone 200 MG TABLET PO SCH ×2 (08:41→21:11)
[2021-08-12] MEDS: Aspirin 81 MG TAB.CHEW PO SCH (08:41)
[2021-08-12] MEDS: Pantoprazole 40 MG VIAL IVP SCH (08:41)
[2021-08-12] MEDS: Nystatin SUSP 5 ML UD.LIQ PO SCH ×3 (08:41→16:34)
[2021-08-12] MEDS: Chlorhexidine Rinse 15 ML MOUTHWASH MM SCH ×2 (08:42→21:11)
[2021-08-12] MEDS: Insulin LISPRO 300 UNITS/3 ML VIAL SUBQ SCH ×3 (08:42→16:34)
[2021-08-12] MEDS: Insulin DETEMIR 100 UNIT/ML X5UNITS SUBQ SCH ×2 (08:42→21:13)
[2021-08-12] MEDS ORDERED: Calcium Gluconate 1gm/50mL 1 GM/50 ML BAG IVPB ONE (09:19)
[2021-08-12] MEDS: *HR* OxyCODONE/APAP 5/325 TABLET PO PRN ×2 (09:35→14:13)
[2021-08-12] MEDS: DOBUTamine 1,000 MG/250 ML BAG IVC SCH (11:01)
[2021-08-12] MEDS: Melatonin 3 MG TABLET PO SCH (21:13)
[2021-08-13 03:14] LABS: Basophils # 0.1 K/mcL (0.0-0.2); Basophils % 0.4 %; Eosinophils # 0.4 K/mcL (0.0-0.6); Eosinophils % 2.8 %; Hematocrit 26.7 % (37.5-50.1); Immature Granulocytes % 0.9 % (0-4); Lymphocytes % 7.2 %; Mean Corpuscular HGB Conc 33.7 g/dL (31.6-35.5); Mean Corpuscular Hemoglobin 29.9 pg (28.0-33.3); Mean Corpuscular Volume 88.7 fL (83.0-100.0); Mean Platelet Volume 10.6 fL (9.4-12.4); Monocytes # 1.8 K/mcL (0.0-1.3); Monocytes % 12.6 %; Neutrophils # 10.7 K/mcL (1.6-8.9); Platelet Count 373 K/mcL (140-400); Red Blood Count 3.01 M/mcL (4.19-5.50); Red Cell Distribution Width 13.2 % (11.5-14.5); Segmented Neutrophils % 76.1 %; White Blood Count 14.1 K/mcL (4.3-11.1)
[2021-08-13] MEDS: Nystatin SUSP 5 ML UD.LIQ PO SCH ×5 (03:32→20:00)
[2021-08-13 03:33] LABS: Calcium 8.2 mg/dL (8.6-10.3); Potassium 4.1 mEq/L (3.5-5.1)
[2021-08-13] MEDS: Insulin LISPRO 300 UNITS/3 ML VIAL SUBQ SCH ×5 (03:34→19:53)
[2021-08-13] MEDS: *HR* Heparin 5,000 UNIT/ML VIAL SQ SCH ×3 (05:44→19:53)
[2021-08-13] MEDS: Aspirin 81 MG TAB.CHEW PO SCH (09:10)
[2021-08-13] MEDS: Chlorhexidine Rinse 15 ML MOUTHWASH MM SCH ×2 (09:10→19:52)
[2021-08-13] MEDS: Pantoprazole 40 MG VIAL IVP SCH (09:10)
[2021-08-13] MEDS: *HR* OxyCODONE/APAP 5/325 TABLET PO PRN (09:11)
[2021-08-13] MEDS: *HR* Amiodarone 200 MG TABLET PO SCH ×3 (09:12→19:52)
[2021-08-13] MEDS: Insulin DETEMIR 100 UNIT/ML X5UNITS SUBQ SCH ×2 (09:14→19:53)
[2021-08-13] MEDS: Melatonin 3 MG TABLET PO SCH (18:54)
[2021-08-14 05:32] LABS: Basophils # 0.1 K/mcL (0.0-0.2); Basophils % 0.4 %; Eosinophils # 0.2 K/mcL (0.0-0.6); Eosinophils % 1.6 %; Hemoglobin 9.4 g/dL (12.9-16.9); Immature Granulocytes % 0.8 % (0-4); Lymphocytes % 6.8 %; Mean Corpuscular HGB Conc 33.6 g/dL (31.6-35.5); Mean Corpuscular Hemoglobin 30.2 pg (28.0-33.3); Mean Platelet Volume 10.9 fL (9.4-12.4); Monocytes # 1.5 K/mcL (0.0-1.3); Monocytes % 10.2 %; Neutrophils # 11.5 K/mcL (1.6-8.9); Platelet Count 369 K/mcL (140-400); Red Blood Count 3.11 M/mcL (4.19-5.50); Red Cell Distribution Width 13.2 % (11.5-14.5); Segmented Neutrophils % 80.2 %; White Blood Count 14.3 K/mcL (4.3-11.1)
[2021-08-14] MEDS: *HR* Heparin 5,000 UNIT/ML VIAL SQ SCH ×3 (05:33→19:50)
[2021-08-14 05:51] LABS: Calcium 8.7 mg/dL (8.6-10.3); Potassium 4.5 mEq/L (3.5-5.1)
[2021-08-14] MEDS: *HR* OxyCODONE/APAP 5/325 TABLET PO PRN ×2 (06:10→19:50)
[2021-08-14] MEDS: Nystatin SUSP 5 ML UD.LIQ PO SCH ×4 (08:56→19:50)
[2021-08-14] MEDS: Chlorhexidine Rinse 15 ML MOUTHWASH MM SCH ×2 (08:56→19:49)
[2021-08-14] MEDS: Aspirin 81 MG TAB.CHEW PO SCH (08:57)
[2021-08-14] MEDS: *HR* Amiodarone 200 MG TABLET PO SCH ×2 (08:57→19:50)
[2021-08-14] MEDS: Insulin LISPRO 300 UNITS/3 ML VIAL SUBQ SCH ×4 (08:58→19:51)
[2021-08-14] MEDS: Pantoprazole 40 MG VIAL IVP SCH (09:11)
[2021-08-14] MEDS: Insulin DETEMIR 100 UNIT/ML X5UNITS SUBQ SCH ×2 (09:11→19:51)
[2021-08-14] MEDS ORDERED: GuaiFENesin/Pseudophedrine TABLET PO PRN (11:03)
[2021-08-14] MEDS: cefTRIAXone 1,000 MG in Water for inj. (sterile) 10 ML IVP SCH (13:00)
[2021-08-14] MEDS ORDERED: Melatonin 3 MG TABLET PO PRN (21:00)
[2021-08-15] MEDS: *HR* OxyCODONE/APAP 5/325 TABLET PO PRN ×3 (04:27→20:59)
[2021-08-15] MEDS: *HR* Heparin 5,000 UNIT/ML VIAL SQ SCH ×3 (04:35→20:59)
[2021-08-15 07:31] LABS: Hematocrit 28.4 % (37.5-50.1); Hemoglobin 9.3 g/dL (12.9-16.9); Mean Corpuscular HGB Conc 32.7 g/dL (31.6-35.5); Mean Corpuscular Hemoglobin 29.2 pg (28.0-33.3); Mean Corpuscular Volume 89.3 fL (83.0-100.0); Platelet Count 506 K/mcL (140-400); Red Blood Count 3.18 M/mcL (4.19-5.50); Red Cell Distribution Width 13.1 % (11.5-14.5); White Blood Count 13.9 K/mcL (4.3-11.1)
[2021-08-15 07:52] LABS: Calcium 8.6 mg/dL (8.6-10.3); Magnesium 2.1 mg/dL (1.6-2.6); Potassium 4.3 mEq/L (3.5-5.1)
[2021-08-15] MEDS: Chlorhexidine Rinse 15 ML MOUTHWASH MM SCH ×2 (09:03→21:00)
[2021-08-15] MEDS: Pantoprazole 40 MG VIAL IVP SCH (09:03)
[2021-08-15] MEDS: Nystatin SUSP 5 ML UD.LIQ PO SCH ×4 (09:05→21:00)
[2021-08-15] MEDS: Aspirin 81 MG TAB.CHEW PO SCH (09:08)
[2021-08-15] MEDS: cefTRIAXone 1,000 MG in Water for inj. (sterile) 10 ML IVP SCH (09:55)
[2021-08-15] MEDS: Insulin DETEMIR 100 UNIT/ML X5UNITS SUBQ SCH ×2 (09:59→21:00)
[2021-08-15] MEDS: Insulin LISPRO 300 UNITS/3 ML VIAL SUBQ SCH ×4 (10:01→21:00)
[2021-08-15] MEDS: *HR* Amiodarone 200 MG TABLET PO SCH ×2 (10:07→21:00)
[2021-08-15] MEDS: Lactobacillus 1 EACH CAP.SPRINK PO SCH (16:59)
[2021-08-16] MEDS: *HR* OxyCODONE/APAP 5/325 TABLET PO PRN ×2 (03:02→15:41)
[2021-08-16] MEDS: *HR* Heparin 5,000 UNIT/ML VIAL SQ SCH ×2 (05:16→14:27)
[2021-08-16 06:17] LABS: Basophils # 0.1 K/mcL (0.0-0.2); Basophils % 0.5 %; Eosinophils # 0.5 K/mcL (0.0-0.6); Eosinophils % 3.5 %; Hematocrit 28.3 % (37.5-50.1); Hemoglobin 9.4 g/dL (12.9-16.9); Immature Granulocytes % 0.6 % (0-4); Lymphocytes # 1.4 K/mcL (0.6-4.6); Lymphocytes % 9.5 %; Mean Corpuscular HGB Conc 33.2 g/dL (31.6-35.5); Mean Corpuscular Hemoglobin 29.6 pg (28.0-33.3); Mean Platelet Volume 10.3 fL (9.4-12.4); Monocytes # 1.2 K/mcL (0.0-1.3); Monocytes % 8.1 %; Neutrophils # 11.4 K/mcL (1.6-8.9); Platelet Count 598 K/mcL (140-400); Red Blood Count 3.18 M/mcL (4.19-5.50); Red Cell Distribution Width 13.2 % (11.5-14.5); Segmented Neutrophils % 77.8 %; White Blood Count 14.6 K/mcL (4.3-11.1)
[2021-08-16] MEDS: DOBUTamine 1,000 MG/250 ML BAG IVC SCH (07:55)
[2021-08-16] MEDS: Insulin LISPRO 300 UNITS/3 ML VIAL SUBQ SCH ×3 (08:04→17:25)
[2021-08-16] MEDS: cefTRIAXone 1,000 MG in Water for inj. (sterile) 10 ML IVP SCH (08:51)
[2021-08-16] MEDS: Insulin DETEMIR 100 UNIT/ML X5UNITS SUBQ SCH (08:51)
[2021-08-16] MEDS: Pantoprazole 40 MG VIAL IVP SCH (08:51)
[2021-08-16] MEDS: Nystatin SUSP 5 ML UD.LIQ PO SCH ×3 (08:52→17:48)
[2021-08-16] MEDS: *HR* Amiodarone 200 MG TABLET PO SCH (08:52)
[2021-08-16] MEDS: Chlorhexidine Rinse 15 ML MOUTHWASH MM SCH (08:52)
[2021-08-16] MEDS: Lactobacillus 1 EACH CAP.SPRINK PO SCH (08:52)
[2021-08-16] MEDS: Aspirin 81 MG TAB.CHEW PO SCH (08:52)
[2021-08-16] MEDS ORDERED: Lidocaine/EPI 1:100k 1% 30 ML VIAL INFILT ONE (09:00)
[2021-08-16 09:21] LABS: Calcium 8.7 mg/dL (8.6-10.3); Potassium 4.5 mEq/L (3.5-5.1)
[2021-08-16] MEDS ORDERED: Lidocaine/EPI 1:100k 1% 50 ML VIAL INFILT ONE (09:30)
[2021-08-16] MEDS ORDERED: *HR* FentaNYL (PF) 100 MCG/2 ML VIAL IVP ONE (11:43)
[2021-08-16] MEDS ORDERED: *HR* FentaNYL (PF) 100 MCG/2 ML VIAL ONE (11:44)
[2021-08-17] MEDS: Insulin LISPRO 300 UNITS/3 ML VIAL SUBQ SCH ×5 (00:54→20:23)
[2021-08-17] MEDS: *HR* Amiodarone 200 MG TABLET PO SCH ×3 (00:54→20:22)
[2021-08-17] MEDS: Chlorhexidine Rinse 15 ML MOUTHWASH MM SCH ×3 (00:54→20:21)
[2021-08-17] MEDS: Nystatin SUSP 5 ML UD.LIQ PO SCH ×5 (00:54→20:24)
[2021-08-17] MEDS: Insulin DETEMIR 100 UNIT/ML X5UNITS SUBQ SCH ×3 (00:54→20:22)
[2021-08-17] MEDS: *HR* Heparin 5,000 UNIT/ML VIAL SQ SCH ×4 (00:55→20:22)
[2021-08-17] MEDS: *HR* OxyCODONE/APAP 5/325 TABLET PO PRN ×2 (03:50→12:50)
[2021-08-17] MEDS: cefTRIAXone 1,000 MG in Water for inj. (sterile) 10 ML IVP SCH (08:46)
[2021-08-17] MEDS: Pantoprazole 40 MG VIAL IVP SCH (08:47)
[2021-08-17] MEDS: Aspirin 81 MG TAB.CHEW PO SCH (08:48)
[2021-08-17] MEDS: Lactobacillus 1 EACH CAP.SPRINK PO SCH (08:49)
[2021-08-17 09:15] LABS: Hematocrit 26.8 % (37.5-50.1); Hemoglobin 8.8 g/dL (12.9-16.9); Mean Corpuscular HGB Conc 32.8 g/dL (31.6-35.5); Mean Corpuscular Hemoglobin 29.6 pg (28.0-33.3); Mean Corpuscular Volume 90.2 fL (83.0-100.0); Mean Platelet Volume 9.7 fL (9.4-12.4); Platelet Count 548 K/mcL (140-400); Red Blood Count 2.97 M/mcL (4.19-5.50); Red Cell Distribution Width 13.3 % (11.5-14.5); White Blood Count 11.9 K/mcL (4.3-11.1)
[2021-08-17 09:33] LABS: Calcium 8.2 mg/dL (8.6-10.3); Magnesium 1.9 mg/dL (1.6-2.6); Potassium 4.5 mEq/L (3.5-5.1)
[2021-08-18] MEDS: *HR* OxyCODONE/APAP 5/325 TABLET PO PRN ×2 (00:49→08:37)
[2021-08-18] MEDS: *HR* Heparin 5,000 UNIT/ML VIAL SQ SCH ×3 (05:20→21:00)
[2021-08-18 05:43] LABS: Hematocrit 25.8 % (37.5-50.1); Hemoglobin 8.3 g/dL (12.9-16.9); Mean Corpuscular HGB Conc 32.2 g/dL (31.6-35.5); Mean Corpuscular Hemoglobin 29.3 pg (28.0-33.3); Mean Corpuscular Volume 91.2 fL (83.0-100.0); Mean Platelet Volume 9.6 fL (9.4-12.4); Platelet Count 556 K/mcL (140-400); Red Blood Count 2.83 M/mcL (4.19-5.50); Red Cell Distribution Width 13.4 % (11.5-14.5); White Blood Count 11.2 K/mcL (4.3-11.1)
[2021-08-18 06:02] LABS: Calcium 8.2 mg/dL (8.6-10.3); Potassium 4.5 mEq/L (3.5-5.1)
[2021-08-18] MEDS: Insulin LISPRO 300 UNITS/3 ML VIAL SUBQ SCH ×4 (08:07→19:56)
[2021-08-18] MEDS: cefTRIAXone 1,000 MG in Water for inj. (sterile) 10 ML IVP SCH (08:08)
[2021-08-18] MEDS: Pantoprazole 40 MG VIAL IVP SCH (08:09)
[2021-08-18] MEDS: Lactobacillus 1 EACH CAP.SPRINK PO SCH (08:09)
[2021-08-18] MEDS: *HR* Amiodarone 200 MG TABLET PO SCH ×2 (08:10→19:54)
[2021-08-18] MEDS: Nystatin SUSP 5 ML UD.LIQ PO SCH ×4 (08:10→21:00)
[2021-08-18] MEDS: Chlorhexidine Rinse 15 ML MOUTHWASH MM SCH ×2 (08:10→19:55)
[2021-08-18] MEDS: Aspirin 81 MG TAB.CHEW PO SCH (08:10)
[2021-08-18] MEDS: Insulin DETEMIR 100 UNIT/ML X5UNITS SUBQ SCH ×2 (08:32→19:55)
[2021-08-18] MEDS: Gabapentin 300 MG CAPSULE PO SCH ×3 (12:05→19:54)
[2021-08-19 03:11] LABS: Basophils # 0.1 K/mcL (0.0-0.2); Basophils % 0.6 %; Eosinophils # 0.6 K/mcL (0.0-0.6); Hematocrit 25.5 % (37.5-50.1); Hemoglobin 8.2 g/dL (12.9-16.9); Immature Granulocytes % 0.6 % (0-4); Lymphocytes # 1.4 K/mcL (0.6-4.6); Lymphocytes % 12.7 %; Mean Corpuscular HGB Conc 32.2 g/dL (31.6-35.5); Mean Corpuscular Volume 90.1 fL (83.0-100.0); Mean Platelet Volume 9.5 fL (9.4-12.4); Monocytes # 0.9 K/mcL (0.0-1.3); Neutrophils # 8.3 K/mcL (1.6-8.9); Platelet Count 532 K/mcL (140-400); Red Blood Count 2.83 M/mcL (4.19-5.50); Red Cell Distribution Width 13.2 % (11.5-14.5); Segmented Neutrophils % 73.1 %; White Blood Count 11.3 K/mcL (4.3-11.1)
[2021-08-19 03:33] LABS: BUN/Creatinine Ratio 17 (6-26); Blood Urea Nitrogen 23 mg/dL (8-23); Calcium 8.2 mg/dL (8.6-10.3); Carbon Dioxide 26 mEq/L (23-29); Chloride 98 mEq/L (98-107); Glucose 190 mg/dL (70-105); Osmolality,Calculated 283 (280-300); Potassium 4.6 mEq/L (3.5-5.1); Sodium 132 mEq/L (136-145); eGFR For African Americans > 60 (> 60); eGFR For Non-African Americans 51 (> 60)
[2021-08-19] MEDS: *HR* Heparin 5,000 UNIT/ML VIAL SQ SCH (05:24)
[2021-08-19] MEDS: Gabapentin 300 MG CAPSULE PO SCH (07:37)
[2021-08-19] MEDS: Aspirin 81 MG TAB.CHEW PO SCH (07:37)
[2021-08-19] MEDS: *HR* Amiodarone 200 MG TABLET PO SCH (07:38)
[2021-08-19] MEDS: Lactobacillus 1 EACH CAP.SPRINK PO SCH (07:38)
[2021-08-19] MEDS: cefTRIAXone 1,000 MG in Water for inj. (sterile) 10 ML IVP SCH (07:39)
[2021-08-19] MEDS: Nystatin SUSP 5 ML UD.LIQ PO SCH (07:39)
[2021-08-19] MEDS: Pantoprazole 40 MG VIAL IVP SCH (07:39)
[2021-08-19] MEDS: Chlorhexidine Rinse 15 ML MOUTHWASH MM SCH (07:39)
[2021-08-19] MEDS: *HR* OxyCODONE/APAP 5/325 TABLET PO PRN (07:45)
[2021-08-19] MEDS: Insulin DETEMIR 100 UNIT/ML X5UNITS SUBQ SCH (09:37)
[2021-08-19] MEDS: Insulin LISPRO 300 UNITS/3 ML VIAL SUBQ SCH ×2 (09:38→11:50)
[2021-08-19] MEDS ORDERED: Furosemide 40 MG TABLET PO SCH (10:15)
[2021-08-19 11:20] VITALS: BP 105/55; PULSE 68; TEMP 97.5
[2021-08-19 12:41] LABS: Adenovirus Not Detected (Not Detect); Bordetella Pertussis Not Detected (Not Detect); Chlamydophila pneumoniae Not Detected (Not Detect); Coronavirus 229E Not Detected (Not Detect); Coronavirus HKU1 Not Detected (Not Detect); Coronavirus NL63 Not Detected (Not Detect); Coronavirus OC43 Not Detected (Not Detect); Human Metapneumovirus Not Detected (Not Detect); Human Rhinovirus/Enterovirus Not Detected (Not Detect); Influenza A Subtype 2009 H1 Not Detected (Not Detect); Influenza B Not Detected (Not Detect); Mycoplasma pneumoniae Not Detected (Not Detect); Parainfluenza Virus 1 Not Detected (Not Detect); Parainfluenza Virus 2 Not Detected (Not Detect); Parainfluenza Virus 3 Not Detected (Not Detect); Parainfluenza Virus 4 Not Detected (Not Detect); Respiratory Syncytial Virus Not Detected (Not Detect); SARS-CoV-2 Not Detected (Not Detect)
[2021-08-19 16:28] VITALS: O2SAT 94
[2021-08-20] MEDS ORDERED: Metoprolol XL (24 HR) Succ 25 MG TAB.ER.24H PO SCH (09:00)
[2021-08-20] MEDS ORDERED: *HR* Amiodarone 200 MG TABLET PO SCH (09:00)
== END 2021-08-19 17:05 | DRG 233 ==
LOC: EMEROOARM 11:36 → 3BNU 11:36 → SUATTDRO 15:19 → 3BNU 16:09 → SUATTDRO 07-30 14:18 → ICNU 08-02 16:47 → 2NNU 08-11 19:08
PROVIDERS: ADMIT Internal Medicine; ATTEND Student in an Organized Health Care Education/Training Program

== ENCOUNTER 2021-09-05 09:17 | Inpatient (IN) ==
[2021-09-05] MEDS ORDERED: Naloxone 0.4 MG/ML INJ IVP PRN (11:04)
[2021-09-05] MEDS ORDERED: *HR* Dextrose 50 % in Water (Syg) 50 ML SYRINGE IVP PRN (11:06)
[2021-09-05] MEDS ORDERED: Dextrose Gel 15 GM/37.5 ML TUBE PO PRN ×2 (11:06)
[2021-09-05] MEDS ORDERED: D5% in Water 1,000 ML IVC PRN (11:06)
[2021-09-05 11:11] LABS: ABG Base Excess 3 mEq/L (-2 to 3); ABG HCO3 28 mEq/L (21-27); ABG Oxygen Saturation 89 % (95-98); ABG PCO2 40 mmHg (35-45); ABG PH 7.44 pH Units (7.32-7.45); ABG PO2 55 mmHg (85-104); ABG TCO2 29 mEq/L (20-26); Blood Gas Modality avaps; Blood Gas VT 500 cc
[2021-09-05] MEDS ORDERED: Ipratropium/Albuterol Neb 3 ML ONE (11:16)
[2021-09-05] MEDS: Ipratropium/Albuterol Neb 3 ML IH SCH ×4 (11:39→23:40)
[2021-09-05] MEDS: Furosemide 40 MG/4 ML VIAL IVP SCH ×3 (11:44→19:31)
[2021-09-05] MEDS: Insulin LISPRO 300 UNITS/3 ML VIAL SUBQ SCH ×3 (11:45→23:35)
[2021-09-05] MEDS ORDERED: Vancomycin (wt based) 1,000 MG VIAL IVPB SCH (12:00)
[2021-09-05 12:09] LABS: Basophils # 0.1 K/mcL (0.0-0.2); Basophils % 0.3 %; Hematocrit 28.5 % (37.5-50.1); Immature Granulocytes % 0.5 % (0-4); Lymphocytes # 1.3 K/mcL (0.6-4.6); Lymphocytes % 7.8 %; Mean Corpuscular HGB Conc 31.6 g/dL (31.6-35.5); Mean Corpuscular Hemoglobin 28.5 pg (28.0-33.3); Mean Corpuscular Volume 90.2 fL (83.0-100.0); Mean Platelet Volume 10.1 fL (9.4-12.4); Monocytes # 1.1 K/mcL (0.0-1.3); Monocytes % 6.5 %; Neutrophils # 14.6 K/mcL (1.6-8.9); Platelet Count 376 K/mcL (140-400); Red Blood Count 3.16 M/mcL (4.19-5.50); Red Cell Distribution Width 13.7 % (11.5-14.5); Segmented Neutrophils % 84.9 %; White Blood Count 17.2 K/mcL (4.3-11.1)
[2021-09-05 12:16] LABS: INR 1.3; Prothrombin Time 14.2 Seconds (9.4-12.1)
[2021-09-05 12:19] LABS: Activated Partial Thrombo Time 38.2 Seconds (26.0-36.0)
[2021-09-05 12:35] LABS: Albumin 3.6 g/dL (3.5-5.7); Albumin/Globulin Ratio 0.9 (1.1-2.2); Bilirubin,Total 0.8 mg/dL (0.3-1.0); Calcium 9.3 mg/dL (8.6-10.3); Globulin 3.8 g/dL (2.4-3.5); Potassium 4.5 mEq/L (3.5-5.1); Total Protein 7.4 g/dL (6.4-8.9); Troponin I 0.08 ng/mL (< 0.04)
[2021-09-05] MEDS ORDERED: Acetaminophen 325 MG TABLET PO PRN (12:59)
[2021-09-05] MEDS ORDERED: Vancomycin 1,000 MG VIAL IVPB SCH (13:00)
[2021-09-05] MEDS: Aspirin 81 MG TAB.CHEW PO SCH (13:07)
[2021-09-05] MEDS: *HR* Heparin 5,000 UNIT/ML VIAL SQ SCH ×2 (14:02→22:09)
[2021-09-05] MEDS: Gabapentin 300 MG CAPSULE PO SCH ×3 (14:02→19:49)
[2021-09-05] MEDS: Piperacillin/Tazobactam 3.375 GM in 0.9 % Sodium Chloride Mini Bag 100 ML IVPB SCH ×2 (14:36→23:26)
[2021-09-05] MEDS ORDERED: Piperacillin/Tazobactam 3.375 GM in 0.9 % Sodium Chloride Mini Bag 100 ML IVPB SCH (16:00)
[2021-09-05] MEDS ORDERED: Piperacillin/Tazobactam 3.375 GM VIAL IVPB SCH (16:00)
[2021-09-06] MEDS: Ipratropium/Albuterol Neb 3 ML IH SCH ×7 (03:46→23:58)
[2021-09-06 04:08] LABS: VBG Ionized Calcium 1.14 mmol/L (1.15-1.35)
[2021-09-06 04:26] LABS: Hematocrit 25.8 % (37.5-50.1); Mean Corpuscular Hemoglobin 27.8 pg (28.0-33.3); Mean Corpuscular Volume 89.6 fL (83.0-100.0); Mean Platelet Volume 10.5 fL (9.4-12.4); Platelet Count 328 K/mcL (140-400); Red Blood Count 2.88 M/mcL (4.19-5.50); Red Cell Distribution Width 13.9 % (11.5-14.5); White Blood Count 16.5 K/mcL (4.3-11.1)
[2021-09-06 04:40] LABS: Albumin 3.3 g/dL (3.5-5.7); Albumin/Globulin Ratio 0.9 (1.1-2.2); Bilirubin,Total 0.7 mg/dL (0.3-1.0); Calcium 9.1 mg/dL (8.6-10.3); Globulin 3.8 g/dL (2.4-3.5); Magnesium 1.9 mg/dL (1.6-2.6); Phosphorous 4.8 mg/dL (2.7-4.5); Potassium 3.7 mEq/L (3.5-5.1); Total Protein 7.1 g/dL (6.4-8.9)
[2021-09-06] MEDS: *HR* Heparin 5,000 UNIT/ML VIAL SQ SCH ×3 (05:32→20:42)
[2021-09-06] MEDS: Insulin LISPRO 300 UNITS/3 ML VIAL SUBQ SCH ×3 (05:33→18:27)
[2021-09-06] MEDS: Piperacillin/Tazobactam 3.375 GM in 0.9 % Sodium Chloride Mini Bag 100 ML IVPB SCH ×2 (06:36→14:25)
[2021-09-06] MEDS ORDERED: *HR* Midazolam HCl 5 MG/5 ML VIAL IVP ONE (07:39)
[2021-09-06] MEDS: Gabapentin 300 MG CAPSULE PO SCH ×3 (07:59→20:42)
[2021-09-06] MEDS: Aspirin 81 MG TAB.CHEW PO SCH (07:59)
[2021-09-06] MEDS: Furosemide 40 MG/4 ML VIAL IVP SCH ×3 (08:00→15:55)
[2021-09-06] MEDS ORDERED: Vancomycin 1,500 MG/265 ML IV.SOLN IVPB SCH (09:00)
[2021-09-06] MEDS ORDERED: *HR* Amiodarone 200 MG TABLET PO SCH (09:00)
[2021-09-06] MEDS ORDERED: Lidocaine Viscous Oral Soln 15 ML SOLUTION ONE (09:29)
[2021-09-06] MEDS ORDERED: 0.9 % Sodium Chloride 1,000 ML ONE (09:37)
[2021-09-06] MEDS ORDERED: Dextrose Gel 15 GM/37.5 ML TUBE PO PRN ×2 (15:18)
[2021-09-06] MEDS ORDERED: D5% in Water 1,000 ML IVC PRN (15:18)
[2021-09-06] MEDS ORDERED: *HR* Dextrose 50 % in Water (Syg) 50 ML SYRINGE IVP PRN (15:18)
[2021-09-06] MEDS ORDERED: Naloxone 0.4 MG/ML INJ IVP PRN (15:18)
[2021-09-06] MEDS ORDERED: Acetaminophen 325 MG TABLET PO PRN (15:18)
[2021-09-07] MEDS: Piperacillin/Tazobactam 3.375 GM in 0.9 % Sodium Chloride Mini Bag 100 ML IVPB SCH ×4 (00:14→23:43)
[2021-09-07] MEDS: Insulin LISPRO 300 UNITS/3 ML VIAL SUBQ SCH ×4 (00:59→18:27)
[2021-09-07 04:22] LABS: Hematocrit 22.3 % (37.5-50.1); Hemoglobin 7.1 g/dL (12.9-16.9); Mean Corpuscular HGB Conc 31.8 g/dL (31.6-35.5); Mean Corpuscular Hemoglobin 28.7 pg (28.0-33.3); Mean Corpuscular Volume 90.3 fL (83.0-100.0); Mean Platelet Volume 10.2 fL (9.4-12.4); Platelet Count 301 K/mcL (140-400); Red Blood Count 2.47 M/mcL (4.19-5.50); Red Cell Distribution Width 13.8 % (11.5-14.5); White Blood Count 12.5 K/mcL (4.3-11.1)
[2021-09-07] MEDS: Ipratropium/Albuterol Neb 3 ML IH SCH ×6 (04:32→23:15)
[2021-09-07 04:39] LABS: Calcium 8.6 mg/dL (8.6-10.3); Potassium 3.2 mEq/L (3.5-5.1)
[2021-09-07] MEDS: *HR* Heparin 5,000 UNIT/ML VIAL SQ SCH ×3 (05:37→22:07)
[2021-09-07] MEDS: *HR* Amiodarone 200 MG TABLET PO SCH (09:30)
[2021-09-07] MEDS: Gabapentin 300 MG CAPSULE PO SCH ×3 (09:30→22:07)
[2021-09-07] MEDS: Furosemide 40 MG/4 ML VIAL IVP SCH ×2 (09:30→16:27)
[2021-09-07] MEDS: Aspirin 81 MG TAB.CHEW PO SCH (09:31)
[2021-09-08] MEDS: Insulin LISPRO 300 UNITS/3 ML VIAL SUBQ SCH ×6 (01:53→21:21)
[2021-09-08] MEDS: Ipratropium/Albuterol Neb 3 ML IH SCH ×2 (03:38→07:45)
[2021-09-08 05:00] LABS: Basophils % 0.4 %; Eosinophils # 0.1 K/mcL (0.0-0.6); Hematocrit 23.4 % (37.5-50.1); Hemoglobin 7.3 g/dL (12.9-16.9); Immature Granulocytes % 0.6 % (0-4); Lymphocytes # 0.9 K/mcL (0.6-4.6); Lymphocytes % 8.3 %; Mean Corpuscular HGB Conc 31.2 g/dL (31.6-35.5); Mean Corpuscular Hemoglobin 28.1 pg (28.0-33.3); Mean Platelet Volume 10.2 fL (9.4-12.4); Monocytes # 0.9 K/mcL (0.0-1.3); Monocytes % 8.1 %; Neutrophils # 8.8 K/mcL (1.6-8.9); Platelet Count 303 K/mcL (140-400); Red Cell Distribution Width 13.7 % (11.5-14.5); Segmented Neutrophils % 81.6 %; White Blood Count 10.8 K/mcL (4.3-11.1)
[2021-09-08 05:16] LABS: Alanine Aminotransferase 6 Units/L (7-52); Albumin 3.2 g/dL (3.5-5.7); Albumin/Globulin Ratio 0.9 (1.1-2.2); Alkaline Phosphatase 77 Units/L (34-104); Aspartate Amino Transferase 7 Units/L (13-39); BUN/Creatinine Ratio 22 (6-26); Bilirubin,Total 0.7 mg/dL (0.3-1.0); Blood Urea Nitrogen 29 mg/dL (8-23); Calcium 8.5 mg/dL (8.6-10.3); Carbon Dioxide 30 mEq/L (23-29); Chloride 95 mEq/L (98-107); Globulin 3.5 g/dL (2.4-3.5); Glucose 202 mg/dL (70-105); Osmolality,Calculated 296 (280-300); Sodium 137 mEq/L (136-145); Total Protein 6.7 g/dL (6.4-8.9); eGFR For African Americans > 60 (> 60); eGFR For Non-African Americans 55 (> 60)
[2021-09-08] MEDS: *HR* Heparin 5,000 UNIT/ML VIAL SQ SCH ×3 (05:44→21:08)
[2021-09-08] MEDS ORDERED: Ipratropium/Albuterol Neb 3 ML IH PRN (08:21)
[2021-09-08] MEDS: Furosemide 40 MG/4 ML VIAL IVP SCH ×2 (08:48→16:56)
[2021-09-08] MEDS: Aspirin 81 MG TAB.CHEW PO SCH (08:49)
[2021-09-08] MEDS: *HR* Amiodarone 200 MG TABLET PO SCH (08:50)
[2021-09-08] MEDS: Gabapentin 300 MG CAPSULE PO SCH ×3 (08:50→21:08)
[2021-09-08] MEDS: Piperacillin/Tazobactam 3.375 GM in 0.9 % Sodium Chloride Mini Bag 100 ML IVPB SCH ×3 (08:58→23:20)
[2021-09-08] MEDS ORDERED: 0.9 % Sodium Chloride 250 ML ONE (10:36)
[2021-09-09 04:02] LABS: ABG Base Excess 7 mEq/L (-2 to 3); ABG HCO3 31 mEq/L (21-27); ABG Oxygen Saturation 99 % (95-98); ABG PCO2 42 mmHg (35-45); ABG PH 7.48 pH Units (7.32-7.45); ABG PO2 131 mmHg (85-104); ABG TCO2 33 mEq/L (20-26)
[2021-09-09 05:35] LABS: Basophils # 0.1 K/mcL (0.0-0.2); Basophils % 0.5 %; Eosinophils # 0.1 K/mcL (0.0-0.6); Hematocrit 27.1 % (37.5-50.1); Hemoglobin 8.6 g/dL (12.9-16.9); Immature Granulocytes % 0.4 % (0-4); Lymphocytes # 0.9 K/mcL (0.6-4.6); Lymphocytes % 7.4 %; Mean Corpuscular HGB Conc 31.7 g/dL (31.6-35.5); Mean Corpuscular Hemoglobin 28.1 pg (28.0-33.3); Mean Corpuscular Volume 88.6 fL (83.0-100.0); Mean Platelet Volume 10.2 fL (9.4-12.4); Monocytes # 0.9 K/mcL (0.0-1.3); Neutrophils # 9.5 K/mcL (1.6-8.9); Platelet Count 315 K/mcL (140-400); Red Blood Count 3.06 M/mcL (4.19-5.50); Red Cell Distribution Width 13.5 % (11.5-14.5); Segmented Neutrophils % 82.7 %; White Blood Count 11.5 K/mcL (4.3-11.1)
[2021-09-09 05:55] LABS: Alanine Aminotransferase 4 Units/L (7-52); Albumin 3.2 g/dL (3.5-5.7); Albumin/Globulin Ratio 0.9 (1.1-2.2); Alkaline Phosphatase 73 Units/L (34-104); Aspartate Amino Transferase 7 Units/L (13-39); BUN/Creatinine Ratio 20 (6-26); Bilirubin,Total 0.8 mg/dL (0.3-1.0); Blood Urea Nitrogen 22 mg/dL (8-23); Calcium 8.7 mg/dL (8.6-10.3); Carbon Dioxide 30 mEq/L (23-29); Chloride 96 mEq/L (98-107); Globulin 3.4 g/dL (2.4-3.5); Glucose 197 mg/dL (70-105); Osmolality,Calculated 291 (280-300); Potassium 3.4 mEq/L (3.5-5.1); Sodium 136 mEq/L (136-145); Total Protein 6.6 g/dL (6.4-8.9); eGFR For African Americans > 60 (> 60); eGFR For Non-African Americans > 60 (> 60)
[2021-09-09] MEDS: *HR* Heparin 5,000 UNIT/ML VIAL SQ SCH ×3 (06:16→21:20)
[2021-09-09] MEDS: Piperacillin/Tazobactam 3.375 GM in 0.9 % Sodium Chloride Mini Bag 100 ML IVPB SCH ×3 (08:33→23:02)
[2021-09-09] MEDS: Furosemide 40 MG/4 ML VIAL IVP SCH ×2 (08:33→16:51)
[2021-09-09] MEDS: Gabapentin 300 MG CAPSULE PO SCH ×3 (08:36→20:23)
[2021-09-09] MEDS: Aspirin 81 MG TAB.CHEW PO SCH (08:36)
[2021-09-09] MEDS: Insulin LISPRO 300 UNITS/3 ML VIAL SUBQ SCH ×4 (08:36→20:24)
[2021-09-09] MEDS: *HR* Amiodarone 200 MG TABLET PO SCH (08:36)
[2021-09-09] MEDS ORDERED: Furosemide 40 MG/4 ML VIAL IVP ONE ×2 (18:38→19:02)
[2021-09-09] MEDS ORDERED: Albumin 25% 25gram/100mL 25 GM/100 ML IV.SOLN IVPB ONE (18:39)
[2021-09-09] MEDS ORDERED: *HR* Digoxin 0.5 MG/2 ML AMPUL IVP ONE (19:33)
[2021-09-09] MEDS: carvediloL 6.25 MG TABLET PO SCH (20:23)
[2021-09-10 03:38] LABS: Basophils # 0.1 K/mcL (0.0-0.2); Basophils % 0.5 %; Eosinophils # 0.1 K/mcL (0.0-0.6); Eosinophils % 1.1 %; Hematocrit 27.2 % (37.5-50.1); Hemoglobin 8.7 g/dL (12.9-16.9); Immature Granulocytes % 0.6 % (0-4); Lymphocytes % 9.5 %; Mean Corpuscular Hemoglobin 28.2 pg (28.0-33.3); Mean Corpuscular Volume 88.3 fL (83.0-100.0); Mean Platelet Volume 10.2 fL (9.4-12.4); Monocytes # 0.8 K/mcL (0.0-1.3); Monocytes % 7.4 %; Neutrophils # 8.9 K/mcL (1.6-8.9); Platelet Count 327 K/mcL (140-400); Red Blood Count 3.08 M/mcL (4.19-5.50); Red Cell Distribution Width 13.4 % (11.5-14.5); Segmented Neutrophils % 80.9 %
[2021-09-10 03:57] LABS: Alanine Aminotransferase 5 Units/L (7-52); Albumin 3.4 g/dL (3.5-5.7); Albumin/Globulin Ratio 1.1 (1.1-2.2); Alkaline Phosphatase 67 Units/L (34-104); Aspartate Amino Transferase 7 Units/L (13-39); BUN/Creatinine Ratio 18 (6-26); Bilirubin,Total 0.6 mg/dL (0.3-1.0); Blood Urea Nitrogen 20 mg/dL (8-23); Calcium 8.8 mg/dL (8.6-10.3); Carbon Dioxide 31 mEq/L (23-29); Chloride 96 mEq/L (98-107); Globulin 3.2 g/dL (2.4-3.5); Glucose 201 mg/dL (70-105); Osmolality,Calculated 292 (280-300); Potassium 3.1 mEq/L (3.5-5.1); Sodium 137 mEq/L (136-145); Total Protein 6.6 g/dL (6.4-8.9); eGFR For African Americans > 60 (> 60); eGFR For Non-African Americans > 60 (> 60)
[2021-09-10 05:02] LABS: Magnesium 1.9 mg/dL (1.6-2.6)
[2021-09-10] MEDS: *HR* Heparin 5,000 UNIT/ML VIAL SQ SCH ×3 (05:10→20:37)
[2021-09-10] MEDS: Gabapentin 300 MG CAPSULE PO SCH ×3 (08:37→20:39)
[2021-09-10] MEDS: *HR* Amiodarone 200 MG TABLET PO SCH (08:37)
[2021-09-10] MEDS: Aspirin 81 MG TAB.CHEW PO SCH (08:37)
[2021-09-10] MEDS: carvediloL 6.25 MG TABLET PO SCH (08:37)
[2021-09-10] MEDS: Insulin LISPRO 300 UNITS/3 ML VIAL SUBQ SCH ×4 (08:37→21:47)
[2021-09-10] MEDS: Piperacillin/Tazobactam 3.375 GM in 0.9 % Sodium Chloride Mini Bag 100 ML IVPB SCH ×3 (08:38→22:44)
[2021-09-10] MEDS ORDERED: Perflutren Lipid Microsphere 1.3 ML in 0.9 % Sodium Chloride 8.7 ML IVP PRN (09:02)
[2021-09-10] MEDS ORDERED: lisinopriL 5 MG TABLET PO SCH (10:15)
[2021-09-10] MEDS: Furosemide 40 MG/4 ML VIAL IVP SCH ×2 (10:31→16:35)
[2021-09-10] MEDS: Metoprolol XL (24 HR) Succ 25 MG TAB.ER.24H PO SCH (16:34)
[2021-09-11] MEDS: *HR* Heparin 5,000 UNIT/ML VIAL SQ SCH ×3 (06:33→21:26)
[2021-09-11] MEDS: Piperacillin/Tazobactam 3.375 GM in 0.9 % Sodium Chloride Mini Bag 100 ML IVPB SCH ×3 (06:33→23:37)
[2021-09-11] MEDS: Insulin LISPRO 300 UNITS/3 ML VIAL SUBQ SCH ×4 (08:13→21:05)
[2021-09-11] MEDS: Furosemide 40 MG/4 ML VIAL IVP SCH ×2 (08:14→16:57)
[2021-09-11] MEDS: Aspirin 81 MG TAB.CHEW PO SCH (08:15)
[2021-09-11] MEDS: Gabapentin 300 MG CAPSULE PO SCH ×3 (08:15→21:26)
[2021-09-11] MEDS: *HR* Amiodarone 200 MG TABLET PO SCH (08:15)
[2021-09-11] MEDS: Metoprolol XL (24 HR) Succ 25 MG TAB.ER.24H PO SCH (08:15)
[2021-09-11] MEDS: Spironolactone 12.5 MG TABLET PO SCH (13:27)
[2021-09-11 14:30] LABS: Alanine Aminotransferase 5 Units/L (7-52); Albumin 3.3 g/dL (3.5-5.7); Alkaline Phosphatase 69 Units/L (34-104); Aspartate Amino Transferase 6 Units/L (13-39); BUN/Creatinine Ratio 15 (6-26); Bilirubin,Total 0.4 mg/dL (0.3-1.0); Blood Urea Nitrogen 17 mg/dL (8-23); Calcium 8.7 mg/dL (8.6-10.3); Carbon Dioxide 33 mEq/L (23-29); Chloride 97 mEq/L (98-107); Globulin 3.3 g/dL (2.4-3.5); Glucose 283 mg/dL (70-105); Osmolality,Calculated 296 (280-300); Potassium 3.5 mEq/L (3.5-5.1); Sodium 137 mEq/L (136-145); Total Protein 6.6 g/dL (6.4-8.9); eGFR For African Americans > 60 (> 60); eGFR For Non-African Americans > 60 (> 60)
[2021-09-12 05:12] LABS: Basophils # 0.1 K/mcL (0.0-0.2); Basophils % 0.9 %; Eosinophils # 0.3 K/mcL (0.0-0.6); Eosinophils % 3.1 %; Hemoglobin 9.2 g/dL (12.9-16.9); Immature Granulocytes % 1.4 % (0-4); Lymphocytes # 1.9 K/mcL (0.6-4.6); Lymphocytes % 19.3 %; Mean Corpuscular HGB Conc 31.7 g/dL (31.6-35.5); Mean Corpuscular Hemoglobin 28.1 pg (28.0-33.3); Mean Corpuscular Volume 88.7 fL (83.0-100.0); Mean Platelet Volume 10.7 fL (9.4-12.4); Neutrophils # 6.4 K/mcL (1.6-8.9); Platelet Count 313 K/mcL (140-400); Red Blood Count 3.27 M/mcL (4.19-5.50); Red Cell Distribution Width 13.5 % (11.5-14.5); Segmented Neutrophils % 65.3 %; White Blood Count 9.8 K/mcL (4.3-11.1)
[2021-09-12 05:36] LABS: Alanine Aminotransferase 4 Units/L (7-52); Albumin 3.2 g/dL (3.5-5.7); Alkaline Phosphatase 66 Units/L (34-104); Aspartate Amino Transferase 11 Units/L (13-39); BUN/Creatinine Ratio 15 (6-26); Bilirubin,Total 0.4 mg/dL (0.3-1.0); Blood Urea Nitrogen 17 mg/dL (8-23); Calcium 8.2 mg/dL (8.6-10.3); Carbon Dioxide 30 mEq/L (23-29); Chloride 99 mEq/L (98-107); Globulin 3.1 g/dL (2.4-3.5); Glucose 182 mg/dL (70-105); Osmolality,Calculated 288 (280-300); Potassium 4.1 mEq/L (3.5-5.1); Sodium 136 mEq/L (136-145); Total Protein 6.3 g/dL (6.4-8.9); eGFR For African Americans > 60 (> 60); eGFR For Non-African Americans > 60 (> 60)
[2021-09-12] MEDS: Piperacillin/Tazobactam 3.375 GM in 0.9 % Sodium Chloride Mini Bag 100 ML IVPB SCH ×2 (06:05→16:46)
[2021-09-12] MEDS: *HR* Heparin 5,000 UNIT/ML VIAL SQ SCH ×3 (06:06→20:05)
[2021-09-12] MEDS: Insulin LISPRO 300 UNITS/3 ML VIAL SUBQ SCH ×4 (08:05→20:05)
[2021-09-12] MEDS: Spironolactone 12.5 MG TABLET PO SCH (08:06)
[2021-09-12] MEDS: Furosemide 40 MG/4 ML VIAL IVP SCH ×2 (08:06→16:45)
[2021-09-12] MEDS: *HR* Amiodarone 200 MG TABLET PO SCH (08:06)
[2021-09-12] MEDS: Gabapentin 300 MG CAPSULE PO SCH ×3 (08:07→20:05)
[2021-09-12] MEDS: Aspirin 81 MG TAB.CHEW PO SCH (08:07)
[2021-09-12] MEDS: Metoprolol XL (24 HR) Succ 25 MG TAB.ER.24H PO SCH (08:07)
[2021-09-12] MEDS: Lactobacillus 1 EACH CAP.SPRINK PO SCH (10:22)
[2021-09-13] MEDS: Piperacillin/Tazobactam 3.375 GM in 0.9 % Sodium Chloride Mini Bag 100 ML IVPB SCH ×2 (00:56→08:16)
[2021-09-13 02:00] LABS: Basophils # 0.1 K/mcL (0.0-0.2); Basophils % 0.9 %; Eosinophils # 0.3 K/mcL (0.0-0.6); Hematocrit 28.5 % (37.5-50.1); Immature Granulocytes % 1.6 % (0-4); Lymphocytes # 1.7 K/mcL (0.6-4.6); Lymphocytes % 18.5 %; Mean Corpuscular HGB Conc 31.6 g/dL (31.6-35.5); Mean Corpuscular Hemoglobin 28.1 pg (28.0-33.3); Mean Corpuscular Volume 89.1 fL (83.0-100.0); Mean Platelet Volume 10.2 fL (9.4-12.4); Monocytes # 0.9 K/mcL (0.0-1.3); Monocytes % 10.1 %; Neutrophils # 5.9 K/mcL (1.6-8.9); Platelet Count 337 K/mcL (140-400); Red Cell Distribution Width 13.5 % (11.5-14.5); Segmented Neutrophils % 65.9 %
[2021-09-13 02:18] LABS: Alanine Aminotransferase 4 Units/L (7-52); Albumin 3.2 g/dL (3.5-5.7); Albumin/Globulin Ratio 0.9 (1.1-2.2); Alkaline Phosphatase 67 Units/L (34-104); Aspartate Amino Transferase 6 Units/L (13-39); BUN/Creatinine Ratio 17 (6-26); Bilirubin,Total 0.5 mg/dL (0.3-1.0); Blood Urea Nitrogen 19 mg/dL (8-23); Calcium 8.7 mg/dL (8.6-10.3); Carbon Dioxide 31 mEq/L (23-29); Chloride 96 mEq/L (98-107); Globulin 3.6 g/dL (2.4-3.5); Glucose 181 mg/dL (70-105); Osmolality,Calculated 287 (280-300); Potassium 4.3 mEq/L (3.5-5.1); Sodium 135 mEq/L (136-145); Total Protein 6.8 g/dL (6.4-8.9); eGFR For African Americans > 60 (> 60); eGFR For Non-African Americans > 60 (> 60)
[2021-09-13] MEDS: *HR* Heparin 5,000 UNIT/ML VIAL SQ SCH ×2 (05:22→13:48)
[2021-09-13] MEDS: Insulin LISPRO 300 UNITS/3 ML VIAL SUBQ SCH ×3 (08:14→16:22)
[2021-09-13] MEDS: Furosemide 40 MG/4 ML VIAL IVP SCH (08:15)
[2021-09-13] MEDS: Spironolactone 12.5 MG TABLET PO SCH (08:25)
[2021-09-13] MEDS: Lactobacillus 1 EACH CAP.SPRINK PO SCH (08:26)
[2021-09-13] MEDS: Aspirin 81 MG TAB.CHEW PO SCH (08:26)
[2021-09-13] MEDS: *HR* Amiodarone 200 MG TABLET PO SCH (08:27)
[2021-09-13] MEDS: Gabapentin 300 MG CAPSULE PO SCH ×2 (08:27→16:35)
[2021-09-13] MEDS: Metoprolol XL (24 HR) Succ 25 MG TAB.ER.24H PO SCH (08:27)
[2021-09-13 11:29] VITALS: BP 94/52; PULSE 67; TEMP 98.3; O2SAT 98
[2021-09-13 14:15] LABS: Influenza A PCR Negative (Negative); Influenza B PCR Negative (Negative); Resp. Syncytial Virus PCR Negative (Negative); SARS-CoV-2 by PCR (In House) Negative (Negative)
== END 2021-09-13 16:40 | disposition critical access hospital (66) | DRG 871 ==
LOC: SUATTDRO 10:43 → ICNU 10:43 → 3BNU 09-06 17:52 → 2NENU 09-09 13:48 → ICNU 09-09 20:58 → 2NNU 09-10 23:31
PROVIDERS: ADMIT Internal Medicine; ATTEND Family Medicine